=== PATIENT | female | born 1990 | race Caucasian/White ===

== ENCOUNTER 2016-06-09 10:15 | Emergency (ER) | payer OTHER ==
[2016-06-09 10:23] VITALS: BP 127/67; PULSE 77; TEMP 97.8; BMI 35.7
--- NOTE | 2016-06-09 11:22 | PDOC ---
History of Present Illness - General Chief Complaint: Pain Stated Complaint: CHEST PAIN Time Seen by Provider: 06/09/16 10:40 History Source: Patient Exam Limitations: No Limitations - History of Present Illness Initial Comments: 06/09/16 11:25 Chief complaint: left breast pain intermittent 4 days History of Present Illness: Patient is a 25-year-old female with a history of asthma here today complaining of intermittent left breast pain 4 days. Patient denies any redness of her breast or discharge from her nipples or any palpated lump. Patient denies any shortness of breath or any wheezing recently. Patient reports that the pain occurs randomly even when at rest. Patient denies any heavy lifting. 06/09/16 12:14 Timing/Duration: unsure Severity: moderate Associated Symptoms: reports: other (left breast pain intermittent ). denies: chest pain, cough, diaphoresis, fever/chills, headaches, loss of appetite, malaise, nausea/vomiting, shortness of breath, syncope, weakness Past History - Past Medical History Allergies/Adverse Reactions: Allergies Allergy/AdvReac Type Severity Reaction Status Date / Time No Known Allergies Allergy Verified 06/09/16 10:23 Home Medications: Ambulatory Orders NK [No Known Home Medication] 04/09/16 Other medical history: PANCEATIC ANEURYSM - Psycho/Social/Smoking Cessation Hx Suicidal Ideation: No Smoking History: Current every day smoker Have you smoked in the past 12 months: Yes Number of Cigarettes Smoked Daily: 8 Information on smoking cessation initiated: No 'Breaking Loose' booklet given: 04/09/16 Hx Alcohol Use: Yes (SOCIAL) Drug/Substance Use Hx: No Substance Use Type: None Review of Systems - Review of Systems Able to Perform ROS?: Yes Comments:: 06/09/16 11:35 Left pain breast intermittent for 4 days, denies redness, discharge from nipple , lump or one particular painful area, Constitutional: No: Symptoms Reported HEENTM: No: Symptoms Reported Respiratory: No: Symptoms reported Cardiac (ROS): No: Symptoms Reported ABD/GI: No: Symptoms Reported : No: Symptoms Reported Musculoskeletal: No: Symptoms Reported Integumentary: No: Symptoms Reported Neurological: No: Symptoms reported *Physical Exam - Vital Signs Last Vital Signs Temp Pulse Resp BP Pulse Ox 97.8 F 77 20 127/67 99 06/09/16 10:19 06/09/16 10:19 06/09/16 10:19 06/09/16 10:19 06/09/16 10:19 - Physical Exam General Appearance: Yes: Appropriately Dressed Neck: negative: Tender, Lymphadenopathy (R), Lymphadenopathy (L), Rigidity, Tender lateral, Tender midline Respiratory/Chest: positive: Lungs Clear, Normal Breath Sounds. negative: Chest Tender, Respiratory Distress Cardiovascular: positive: Regular Rhythm, Regular Rate, S1, S2 Comments:: 06/09/16 11:37 Breasts: No asymmetry of breasts noted no nipple inversion or discharge patient has piercings through both nipples, no peau d'orange of bilateral breasts no dimpling of skin noted, no masses palpated b/l Integumentary: positive: Normal Color Neurologic: positive: Alert, Normal Response Heart Score/ECG Review - ECG Impressions Comment:: 06/09/16 12:[address] Newton NSR, vent 75 bpm Medical Decision Making - Medical Decision Making 06/09/16 12:14 06/09/16 12:15 Patient is a 25-year-old female with a history of asthma here today complaining of intermittent left breast pain 4 days. Patient denies any redness of her breast or discharge from her nipples or any palpated lump. Patient denies any shortness of breath or any wheezing recently. Patient reports that the pain occurs randomly even when at rest. Patient denies any heavy lifting. Left breast pain PLAN: EKG NSR reviewed by Dr. Newton xray chest pa/lateral no infiltrate, dextroscolosis thoracic urine hcg negative breast US left r/o abnormality on it remarkable left breast ultrasound, correlate for pain further evaluation and management should be based on clinical grounds. 06/09/16 13:19 06/09/16 14:09 *DC/Admit/Observation/Transfer Diagnosis at time of Disposition: Breast pain, left - Discharge Dispostion Disposition: HOME Condition at time of disposition: Stable - Patient Instructions Additional Instructions: Follow-up with your primary care provider and [facility] doctor for further evaluation within the next few days Today your chest x-ray was within normal limits no signs of infection EKG was within normal limits Left breast ultrasound was unremarkable Take ibuprofen as needed as directed by engineer chief for pain Return to emergency room if any difficulty breathing or worsening pain or any new symptoms develop Patient voiced understanding of discharge instructions all questions were answered
--- NOTE | 2016-06-16 13:45 | EKG ---
Test Reason : Blood Pressure : / mmHG Vent. Rate : 075 BPM Atrial Rate : 075 BPM P-R Int : 160 ms QRS Dur : 072 ms QT Int : 370 ms P-R-T Axes : 065 031 053 degrees QTc Int : 413 ms NORMAL SINUS RHYTHM WITH SINUS ARRHYTHMIA NORMAL ECG NO PREVIOUS ECGS AVAILABLE Confirmed by JOHN LAL, TIFFANY ([id number]) on 06/16/2016 1:45:45 PM Referred By: Confirmed By:TIFFANY LOPEZ MD
== END 2016-06-09 14:16 | disposition home or self-care (01) ==
LOC: JERFT 10:15
DX: N64.4 Mastodynia (principal); J45.909 Unspecified asthma, uncomplicated; F17.210 Nicotine dependence, cigarettes, uncomplicated
CPT/HCPCS: 71020-TC; 76641-TC-LT; 84703; 93005; 93010; 99281-25

== ENCOUNTER 2016-09-13 21:06 | Inpatient (IN) | payer OTHER ==
--- NOTE | 2016-09-13 21:41 | PDOC ---
History of Present Illness - General History Source: Patient Exam Limitations: No Limitations - History of Present Illness Initial Comments: 09/13/16 21:57 The patient is a 25 year old female with significant past medical history of asthma who presents to the ED for 3 days of right upper and left upper quadrant pain radiating to the back. Patient reports the pain to the right upper quadrant is more prominent than the left. Patient reports associated decreased PO intake and nausea, but no vomiting or diarrhea. No exacerbating or alleviating factors. Denies any recent travels or sick contacts. Denies dysuria , hematuria, frequency, or urgency. The patient denies fever, chills, cough, SOB, chest pain, and palpitations. Allergies: NKDA Social History: Current smoker (half ppd) Past Surgical History: None reported PCP: None reported <Genoveva Lovelace - Last Filed: 09/14/16 03:54> - General History Source: Patient <Ryan Landeros - Last Filed: 09/14/16 19:40> - General Chief Complaint: Pain, Acute Stated Complaint: ABD PAIN Time Seen by Provider: 09/13/16 21:21 Past History <Genoveva Lovelace - Last Filed: 09/14/16 03:54> - Immunization History Immunization Up to Date: Yes - Psycho/Social/Smoking Cessation Hx Suicidal Ideation: No Smoking History: Current every day smoker Have you smoked in the past 12 months: Yes Number of Cigarettes Smoked Daily: 7 Information on smoking cessation initiated: No 'Breaking Loose' booklet given: 04/09/16 Hx Alcohol Use: No Drug/Substance Use Hx: No Substance Use Type: None <Ryan Landeros - Last Filed: 09/14/16 19:40> - Past Medical History Allergies/Adverse Reactions: Allergies Allergy/AdvReac Type Severity Reaction Status Date / Time No Known Allergies Allergy Verified 09/13/16 21:10 Home Medications: Ambulatory Orders Ibuprofen [Advil -] 600 mg PO QID 06/22/16 Review of Systems - Review of Systems Able to Perform ROS?: Yes Comments:: 09/13/16 21:57 CONSTITUTIONAL: +decreased PO intake Absent: fever, no chills, no fatigue EYES: Absent: visual changes ENT: Absent: ear pain, no sore throat CARDIOVASCULAR: Absent: chest pain, no palpitations RESPIRATORY: Absent: cough, no SOB GI: +RUQ and LUQ pain, nausea Absent: no vomiting, no constipation, no diarrhea GENITOURINARY: Absent: dysuria, no frequency, no hematuria MUSCULOSKELETAL: Absent: back pain, no arthralgia, no myalgia SKIN: Absent: rash NEURO: Absent: headache <Genoveva Lovelace - Last Filed: 09/14/16 03:54> *Physical Exam - Vital Signs Last Vital Signs Temp Pulse Resp BP Pulse Ox 98.2 F 91 H 18 135/91 97 09/13/16 21:10 09/13/16 21:10 09/13/16 21:10 09/13/16 21:10 09/13/16 21:10 - Physical Exam Comments: 09/13/16 21:57 GENERAL: Well-appearing, well-nourished. No apparent distress. HEENT: Normocephalic, atraumatic. PERRL, EOM intact. CARDIOVASCULAR: Normal S1, S2. Regular rate and rhythm. PULMONARY: Clear to auscultation bilaterally. ABDOMEN: Soft, non-distended, non-tender. EXTREMITIES: Normal ROM in all four extremities. No gross deformities. SKIN: Warm, dry. No rash NEUROLOGICAL: No focal neurological deficits. <Genoveva Lovelace - Last Filed: 09/14/16 03:54> - Vital Signs Last Vital Signs Temp Pulse Resp BP Pulse Ox 98.2 F 91 H 18 135/91 97 09/13/16 21:10 09/13/16 21:10 09/13/16 21:10 09/13/16 21:10 09/13/16 21:10 <Ryan Landeros - Last Filed: 09/14/16 19:40> ED Treatment Course - LABORATORY CBC & Chemistry Diagram: 09/13/16 22:30 09/13/16 22:30 - RADIOLOGY Radiograph Interpretation: 09/14/16 03:54 EXAM: CT abdomen and pelvis without contrast Reviewed by Imaging professor of religion: FINDINGS: Lung bases are clear. The visualized cardiac chambers are normal size and configuration. There is an 18 mm calcification in the region of the distal CBD. No CBD or intrahepatic duct dilation. Normal unenhanced liver, gallbladder , pancreas, spleen, adrenal glands and kidneys. The stomach and abdominal small and large bowel are normal. There is no aortic aneurysm. There is no significant retroperitoneal lymphadenopathy. The pelvic small and large bowel are normal. The appendix is normal. The uterus and adnexal structures are normal. Urinary bladder is unremarkable. There is no pelvic free fluid. No discrete pelvic lymphadenopathy is identified. IMPRESSION: No definite acute pathology. 18 mm calcifications in the region of the distal CBD of unclear significance, although there is no CBD dilation. <Genoveva Lovelace - Last Filed: 09/14/16 03:54> - LABORATORY CBC & Chemistry Diagram: 09/14/16 06:30 09/14/16 06:30 <Ryan Landeros - Last Filed: 09/14/16 19:40> Medical Decision Making - Medical Decision Making 09/14/16 06:38 Dr. Landeros: The scribe's documentation has been prepared under my direction and personally reviewed by me in its entirery. I confirm that the note above accurately reflects all work, treatment, procedures, and medical decision making performed by me. Patient found to have a 18 mm area of calcification at the gallbladder duct. Patient afebrile, LFTs normal, normal white count. however, patient having moderate pain. admitted to the hospitalist service. <Ryan Landeros - Last Filed: 09/14/16 19:40> *DC/Admit/Observation/Transfer - Attestations Scribe Attestion: 09/13/16 21:58 Documentation prepared by Genoveva Lovelace, acting as medical lab director for Ryan Landeros MD/DO. <Genoveva Lovelace - Last Filed: 09/14/16 03:54> - Discharge Dispostion Admit: Yes <Ryan Landeros - Last Filed: 09/14/16 19:40> Diagnosis at time of Disposition: Abdominal pain
[2016-09-13] MEDS ORDERED: PANTOPRAZOLE SODIUM 40 MG in SODIUM CHLORIDE 100 ML IVPB ONE (21:53)
[2016-09-13] MEDS ORDERED: ONDANSETRON 4 MG/2 ML VIAL IVPUSH STA (21:53)
[2016-09-13] MEDS ORDERED: PANTOPRAZOLE SODIUM 100 ML IVPB ONE (22:28)
[2016-09-13] MEDS ORDERED: ONDANSETRON 4 MG/2 ML VIAL ONE (22:28)
[2016-09-13 22:45] LABS: BASOPHIL 0.6 % (0-2.0); EOSINOPHIL 1.8 % (0-4.5); MCH 24.7 pg (25.7-33.7); MCHC 31.6 g/dl (32.0-36.0); MEAN PLT VOLUME 10.7 fl (7.5-11.1); NEUTROPHILS 49.2 % (42.8-82.8); PLATELET COUNT 82 K/MM3 (134-434); RDW 15.4 % (11.6-15.6); WHITE BLOOD COUNT 6.2 K/mm3 (4.0-10.0)
[2016-09-13 23:02] LABS: INR 1.02 (0.82-1.09); PROTHROMBIN TIME (PATIENT) 11.2 SEC (9.98-11.88)
[2016-09-13 23:23] LABS: ALBUMIN 3.2 g/dl (3.4-5.0); AMYLASE 48 U/L (25-115); ANION GAP 10 (8-16); CALCIUM 8.3 mg/dL (8.5-10.1); CO2 26 mmol/L (21-32); COCKROFT - GAULT 217.345; CREATININE 0.7 mg/dL (0.55-1.02); GLUCOSE,RANDOM 110 mg/dL (74-106); SGOT/AST 13 U/L (15-37); SGPT/ALT 21 U/L (12-78)
[2016-09-13 23:24] LABS: ALK PHOS 55 U/L (45-117); BILIRUBIN,TOTAL 0.3 mg/dL (0.2-1.0); TOT PROT 6.2 g/dl (6.4-8.2)
[2016-09-14] MEDS ORDERED: KETOROLAC TROMETHAMINE 30 MG/1 ML VIAL IVPUSH ONE (00:25)
[2016-09-14] MEDS ORDERED: KETOROLAC TROMETHAMINE 30 MG/1 ML VIAL ONE (00:25)
[2016-09-14] MEDS ORDERED: HYDROmorphone HCL CARPU-JECT 1 MG/1 ML DISP.SYRIN IVPUSH ONE (04:11)
[2016-09-14] MEDS ORDERED: HYDROmorphone HCL CARPU-JECT 1 MG/1 ML DISP.SYRIN IVPUSH PRN (04:11)
[2016-09-14] MEDS ORDERED: ONDANSETRON 4 MG/2 ML VIAL IVPB PRN (04:12)
[2016-09-14] MEDS ORDERED: HYDROmorphone HCL CARPU-JECT 1 MG/1 ML DISP.SYRIN ONE (04:24)
[2016-09-14] MEDS ORDERED: ONDANSETRON 4 MG/2 ML VIAL ONE (04:30)
[2016-09-14] MEDS ORDERED: ALBUTEROL SO4 0.083% IH SOL 2.5 MG/3 ML VIAL.NEB. NEB PRN (04:40)
[2016-09-14] MEDS: SODIUM CHLORIDE 1,000 ML IV SCH (04:48)
--- NOTE | 2016-09-14 04:48 | HP ---
CHIEF COMPLAINT: abd pain PCP: HISTORY OF PRESENT ILLNESS: This is a 25 year old female with a past medical history of asthma and "aneurysm " on head of pancreas who presented with abdominal pain, bilat upper quadrant pain which localizes to epigastric area. Pt reports nausea and one small episode vomiting yesterday. No further vomiting and no diarrhea. Pt reports pain 8/10 at present. She denies any chest pain or SOB. She reports that she did see a GI at [facility] a over a year ago and cannot remember his name. 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 PAST SURGICAL HISTORY: x 2 Social History: Smokin/2 ppd x 8 years Alcohol: occ socially, has 2-3 drinks Drugs: pt denies Family History: mother alive, asthma, HTN, borderline DM, seizure disorder father , murdered, no known medical problems brother 2 months of age, born with half a heart multiple siblings with asthma Allergies No Known Allergies Allergy (Verified 09/13/16 21:10) HOME MEDICATIONS: 3 Medication Instructions Recorded Ibuprofen [Advil -] 600 mg PO QID 06/22/16 REVIEW OF SYSTEMS CONSTITUTIONAL: Present: loss of appetite Absent: fever, chills, diaphoresis, generalized weakness, malaise, weight change HEENT: Absent: rhinorrhea, nasal congestion, throat pain, throat swelling, difficulty swallowing, mouth swelling, ear pain, eye pain, visual changes CARDIOVASCULAR: Absent: chest pain, syncope, palpitations, irregular heart rate, lightheadedness , peripheral edema RESPIRATORY: Absent: cough, shortness of breath, dyspnea with exertion, orthopnea, wheezing, stridor, hemoptysis GASTROINTESTINAL: Present: abdominal pain, nausea Absent: abdominal distension, vomiting, diarrhea, constipation, melena, hematochezia GENITOURINARY: Absent: dysuria, frequency, urgency, hesitancy, hematuria, flank pain, genital pain MUSCULOSKELETAL: Absent: myalgia, arthralgia, joint swelling, back pain, neck pain SKIN: Absent: rash, itching, pallor HEMATOLOGIC/IMMUNOLOGIC: Absent: easy bleeding, easy bruising, lymphadenopathy, frequent infections ENDOCRINE: Absent: unexplained weight gain, unexplained weight loss, heat intolerance, cold intolerance NEUROLOGIC: Absent: headache, focal weakness or paresthesias, dizziness, unsteady gait, seizure, mental status changes, bladder or bowel incontinence PSYCHIATRIC: Absent: anxiety, depression, suicidal or homicidal ideation, hallucinations. PHYSICAL EXAMINATION Vital Signs - 24 hr 3 09/13/16 21:10 Temperature 98.2 F Pulse Rate 91 H Respiratory 18 Rate Blood Pressure 135/91 O2 Sat by Pulse 97 Oximetry (%) GENERAL: Awake, alert, and fully oriented, in no acute distress. HEAD: Normal with no signs of trauma. EYES: Pupils equal, round and reactive to light, extraocular movements intact, sclera anicteric, conjunctiva clear. No lid lag. EARS, NOSE, THROAT: Ears normal, nares patent, oropharynx clear without exudates. Moist mucous membranes. NECK: Normal range of motion, supple without lymphadenopathy, JVD, or masses. LUNGS: Breath sounds equal, clear to auscultation bilaterally. No wheezes, and no crackles. No accessory muscle use. HEART: Regular rate and rhythm, normal S1 and S2 without murmur, rub or gallop. ABDOMEN: Soft, obese, not distended, normoactive bowel sounds, no guarding, no rebound, no masses. No hepatomegaly or splenomegaly. + tenderness epigastric region and RUQ on deep palpation MUSCULOSKELETAL: Normal range of motion at all joints. No bony deformities or tenderness. No CVA tenderness. UPPER EXTREMITIES: 2+ pulses, warm, well-perfused. No cyanosis. No clubbing. No peripheral edema. LOWER EXTREMITIES: 2+ pulses, warm, well-perfused. No calf tenderness. No peripheral edema. NEUROLOGICAL: Cranial nerves II-XII intact. Normal speech. Normal gait. PSYCHIATRIC: Cooperative. Good eye contact. Appropriate mood and affect. SKIN: Warm, dry, normal turgor, no rashes or lesions noted, normal capillary refill. Laboratory Results - last 24 hr 3 09/13/16 09/13/16 09/13/16 22:30 22:30 22:30 WBC 6.2 RBC 4.68 Hgb 11.6 Hct 36.5 MCV 78.0 L MCHC 31.6 L RDW 15.4 Plt Count 82 L MPV 10.7 Neutrophils % 49.2 Lymphocytes % 38.5 Monocytes % 9.9 Eosinophils % 1.8 Basophils % 0.6 INR 1.02 Sodium Potassium Chloride Carbon Dioxide Anion Gap BUN Creatinine Creat Clearance w eGFR Random Glucose Calcium Total Bilirubin AST ALT Alkaline Phosphatase Total Protein Albumin Total Amylase Lipase Serum , Qual Negative 3 09/13/16 22:30 WBC RBC Hgb Hct MCV MCHC RDW Plt Count MPV Neutrophils % Lymphocytes % Monocytes % Eosinophils % Basophils % INR Sodium 142 Potassium 3.6 Chloride 106 Carbon Dioxide 26 Anion Gap 10 BUN 13 Creatinine 0.7 Creat Clearance w eGFR > 60 Random Glucose 110 H Calcium 8.3 L Total Bilirubin 0.3 AST 13 L ALT 21 Alkaline Phosphatase 55 Total Protein 6.2 L Albumin 3.2 L Total Amylase 48 Lipase 85 Serum , Qual CT abdomen/pelvis: Addendum: Apparently the patient does have a 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 Recommend comparison with prior examination in order to demonstrate stability were obtain a CTA or MRA as clinically warranted. This is likely an incidental finding. THIS DOCUMENT HAS BEEN ELECTRONICALLY SIGNED Balta Gutierrez MD 09/14/2016 04:22 ALHAJI Sherman Please call Imaging Industrial Renderer [phone] ([phone]) with questions. PREVIOUS REPORT: Referring Physician: Ryan Landeros Patient Name: Sariah Harper THIS IS A PRELIMINARYREPORT FROM IMAGING [facility] EXAM: CT abdomen and pelvis without contrast IMAGES: [id number] INDICATION: Pain. Rule out diverticulitis. DATE OF SERVICE: 2016-09-14 02:31:33.0 COMPARISON: none FINDINGS: Lung bases are clear. The visualized cardiac chambers are normal size and configuration. There is an 18 mm calcification in the region of the distal CBD. No CBD or intrahepatic duct dilation. Normal unenhanced liver, gallbladder , pancreas, spleen, adrenal glands and kidneys. The stomach and abdominal small and large bowel are normal. There is no aortic aneurysm. There is no significant retroperitoneal lymphadenopathy. The pelvic small and large bowel are normal. The appendix is normal. The uterus and adnexal structures are normal. Urinary bladder is unremarkable. There is no pelvic free fluid. No discrete pelvic lymphadenopathy is identified. IMPRESSION: No definite acute pathology. 18 mm calcifications in the region of the distal CBD of unclear significance, although there is no CBD dilation. THIS DOCUMENT HAS BEEN ELECTRONICALLY SIGNED Balta Gutierrez MD 09/14/2016 03:07 EST ASSESSMENT/PLAN: 25yF with PMH asthma and "aneurysm at pancreatic head" presented to the ED with abdominal pain. She is being admitted for further workup. Abdominal pain with calcification in region of distal CBD - ? r/t previous pancreatic aneurysm vs choledocholithiasis - choledocholithiasis unlikely as pt without CBD dilation or elevated WBC, LFTs, lipase or amylase - d/w home sales consultant radiologist Dr Gutierrez, states aneurysm could be source of finding but no sign of acute rupture - will order MRA abdomen - consider GI consult - trend WBC and LFTs - keep NPO - pantoprazole 40mg IVPB daily asthma - asymptomatic; monitor for acute exac and treat DVT PPX - chemoprophylaxis deferred at present, pt fully ambulatory FEN - NS @ 100cc/hr - repeat labs in am - NPO for now Dispo: pt currently requires inpatient observation of her emergent condition. Visit type - Emergency Visit Emergency Visit: Yes ED Registration Date: 09/13/16 Care time: The patient presented to the Emergency Department on the above date and was hospitalized for further evaluation of their emergent condition. - New Patient This patient is new to me today: Yes Date on this admission: 09/14/16 - Critical Care Critical Care patient: No
[2016-09-14] MEDS: DOCUSATE SODIUM 100 MG CAPSULE (FP) PO SCH ×3 (07:40→21:27)
[2016-09-14 07:53] LABS: BASOPHIL 0.5 % (0-2.0); EOSINOPHIL 2.1 % (0-4.5); MCH 25.4 pg (25.7-33.7); MCHC 32.3 g/dl (32.0-36.0); MEAN CELL VOLUME 78.7 fl (80-96); MEAN PLT VOLUME 10.7 fl (7.5-11.1); NEUTROPHILS 47.2 % (42.8-82.8); PLATELET COUNT 77 K/MM3 (134-434); RDW 15.3 % (11.6-15.6); WHITE BLOOD COUNT 5.6 K/mm3 (4.0-10.0)
[2016-09-14 08:06] VITALS: BMI 40.5
[2016-09-14 08:16] LABS: ALBUMIN 3.1 g/dl (3.4-5.0); ALK PHOS 50 U/L (45-117); ANION GAP 12 (8-16); BILIRUBIN,TOTAL 0.5 mg/dL (0.2-1.0); CALCIUM 8.2 mg/dL (8.5-10.1); CO2 27 mmol/L (21-32); CREATININE 0.6 mg/dL (0.55-1.02); GLUCOSE,RANDOM 80 mg/dL (74-106); MAGNESIUM 1.9 mg/dL (1.8-2.4); PHOSPHOROUS 3.8 mg/dL (2.5-4.9); SGOT/AST 15 U/L (15-37); SGPT/ALT 19 U/L (12-78); TOT PROT 5.9 g/dl (6.4-8.2)
[2016-09-14] MEDS: HYDROmorphone HCL CARPU-JECT 1 MG/1 ML DISP.SYRIN IVPB PRN ×4 (08:19→22:37)
[2016-09-14] MEDS ORDERED: METOCLOPRAMIDE HCL INJECTION 10 MG/2 ML VIAL IVPB ONE (11:15)
[2016-09-14] MEDS ORDERED: PNEUMOC 13-VAL CONJ-DIP CRM/PF 0.5 ML DISP.SYRIN IM ONE (12:11)
--- NOTE | 2016-09-14 12:26 | PN ---
Physical Exam: SUBJECTIVE: Patient seen and examined. She is still having 8/10 pain on the RUQ that radiates to her right back, LUQ pain/discomfort and epigastric pain. Denies vomiting but is having nausea not relieved with Zofran. She states she had this abdominal discomfort one year ago but it now much worse. OBJECTIVE: On exam, appears comfortable, no acute distress RUQ tenderness on light palpation, +epigastric pain Will Give Reglan x 1 for nausea Awaiting MRI of abdomen Will need MRI from 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 HEAD: Normal with no signs of trauma. EYES: PERRL, extraocular movements intact, sclera anicteric, conjunctiva clear. No ptosis. ENT: Ears normal, nares patent, oropharynx clear without exudates, moist mucous membranes. NECK: Trachea midline, full range of motion, supple. LUNGS: Breath sounds equal, clear to auscultation bilaterally, no wheezes, no crackles, no accessory muscle use. HEART: Regular rate and rhythm ABDOMEN: Soft, nontender, nondistended, normoactive bowel sounds, no guarding, + RUQ tenderness EXTREMITIES: no edema, states her right ankle is sore, no edema, no bruising noted on exam. Able to ambulate without difficulty. NEUROLOGICAL: Normal speech PSYCH: Normal mood, normal affect. SKIN: Warm, dry, normal turgor, no rashes or lesions noted Laboratory Results - last 24 hr 09/14/16 09/14/16 06:30 06:30 WBC 5.6 RBC 4.71 Hgb 11.9 Hct 37.0 MCV 78.7 L MCHC 32.3 RDW 15.3 Plt Count 77 L MPV 10.7 Neutrophils % 47.2 Lymphocytes % 40.9 H Monocytes % 9.3 Eosinophils % 2.1 Basophils % 0.5 Sodium 143 Potassium 4.4 D Chloride 104 Carbon Dioxide 27 Anion Gap 12 BUN 11 Creatinine 0.6 Creat Clearance w eGFR > 60 Random Glucose 80 D Calcium 8.2 L Phosphorus 3.8 Magnesium 1.9 Total Bilirubin 0.5 D AST 15 ALT 19 Alkaline Phosphatase 50 Total Protein 5.9 L Albumin 3.1 L Active Medications Generic Name Dose Route Start Last Admin Trade Name Radha PRN Reason Stop Dose Admin Albuterol Sulfate 1 amp 09/14/16 04:40 Ventolin 0.083% Nebulizer Soln - NEB Q4H PRN SHORT OF BREATH/WHEEZING Docusate Sodium 100 mg 09/14/16 06:00 09/14/16 07:40 Colace - PO 100 mg TID AB Administration Hydromorphone HCl 0.5 mg 09/14/16 07:03 09/14/16 08:19 Dilaudid Injection - IVPB 0.5 mg Q4H PRN Administration PAIN Sodium Chloride 1,000 mls @ 100 mls/hr 09/14/16 04:45 09/14/16 04:48 Normal Saline - IV 100 mls/hr ASDIR AB Administration Pantoprazole Sodium 100 mls @ 200 mls/hr 09/14/16 10:00 Protonix 40mg Ivpb (Pre-Docked) IVPB DAILY AB Ondansetron HCl 4 mg 09/14/16 04:12 09/14/16 04:33 Zofran Injection IVPB 4 mg Q4H PRN Administration NAUSEA AND/OR VOMITING Pneumococcal 13-Valent Conj Vacc 0.5 ml 09/14/16 12:11 Prevnar 13 Syringe - IM 09/14/16 12:12 .ONCE ONE ASSESSMENT/PLAN: Patient is a 25 year old female with significant past medical history of asthma who presents to the ED on 09/14/2016 for abdominal pain. She states her abdominal pain is localized on the RUQ and LUQ that radiates to her back. She states the pain on RUQ is worse than she had in the past. States pain is associated with decreased PO intake and nausea. Denies vomiting or diarrhea on exam. She states that she was told that she has an aneurysm on head of pancreas which was seen at an MRI she had at [facility] about one year ago. 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 Recommend comparison with prior examination in order to demonstrate stability were obtain a CTA or MRA as clinically warranted" FINDINGS: There is an 18 mm calcification in the region of the distal CBD. No CBD or intrahepatic duct dilation. Normal unenhanced liver, gallbladder, pancreas, spleen, adrenal glands and kidneys. The stomach and abdominal small and large bowel are normal. There is no aortic aneurysm. There is no significant retroperitoneal lymphadenopathy. The pelvic small and large bowel are normal. The appendix is normal. The uterus and adnexal structures are normal. Urinary bladder is unremarkable. There is no pelvic free fluid. No discrete pelvic lymphadenopathy is identified. IMPRESSION: No definite acute pathology. 18 mm calcifications in the region of the distal CBD of unclear significance, although there is no CBD dilation. GI: Abdominal Pain - acute as per CT scan: 18mm calcification in distal CBD Assessment/Plan: If there is a previous pancreatic aneurysm, would like to obtain previous MRI done at [facility] and compare As per previous notes, aneurysm could be source of finding (pain?) but no signs of acute rupture MRI/MRCP of abdomen pending On Protonix, Reglan, Zofran as needed amylase and lipase are normal ast/alt normal F.E.N. Fluids: NS @100cc/hr Electrolytes: monitor within normal limits Nutrition: NPO for now Prophylaxis: DVT: ambulatory young patient, defer for now GI: zofran, protonix Disposition. Full code. Patient currently requires inpatient observation. Visit type - Emergency Visit Emergency Visit: Yes ED Registration Date: 09/14/16 Care time: The patient presented to the Emergency Department on the above date and was hospitalized for further evaluation of their emergent condition. - New Patient This patient is new to me today: Yes Date on this admission: 09/14/16 - Critical Care Critical Care patient: No - Discharge Referral Referred to [facility] Med P.C.: No
[2016-09-14] MEDS: PANTOPRAZOLE SODIUM 100 ML IVPB SCH (12:42)
[2016-09-14] MEDS ORDERED: PNEUMOCOCCAL 23 VACCINE 0.5 ML VIAL IM ONE (14:45)
[2016-09-15] MEDS: SODIUM CHLORIDE 1,000 ML IV SCH (05:15)
[2016-09-15] MEDS: DOCUSATE SODIUM 100 MG CAPSULE (FP) PO SCH ×3 (06:16→21:43)
[2016-09-15 07:36] LABS: BASOPHIL 0.6 % (0-2.0); EOSINOPHIL 2.4 % (0-4.5); MCH 25.2 pg (25.7-33.7); MCHC 32.1 g/dl (32.0-36.0); MEAN CELL VOLUME 78.4 fl (80-96); MEAN PLT VOLUME 11.2 fl (7.5-11.1); NEUTROPHILS 42.2 % (42.8-82.8); PLATELET COUNT 75 K/MM3 (134-434); RDW 15.2 % (11.6-15.6); WHITE BLOOD COUNT 4.7 K/mm3 (4.0-10.0)
[2016-09-15 08:29] LABS: ALBUMIN 2.9 g/dl (3.4-5.0); ALK PHOS 50 U/L (45-117); ANION GAP 9 (8-16); BILIRUBIN,TOTAL 0.3 mg/dL (0.2-1.0); CO2 25 mmol/L (21-32); COCKROFT - GAULT 236.3765; CREATININE 0.7 mg/dL (0.55-1.02); GLUCOSE,RANDOM 81 mg/dL (74-106); SGOT/AST 13 U/L (15-37); SGPT/ALT 19 U/L (12-78); TOT PROT 5.7 g/dl (6.4-8.2)
[2016-09-15] MEDS: HYDROmorphone HCL CARPU-JECT 1 MG/1 ML DISP.SYRIN IVPB PRN (09:05)
[2016-09-15] MEDS: PANTOPRAZOLE SODIUM 100 ML IVPB SCH (10:10)
--- NOTE | 2016-09-15 16:44 | PN ---
Physical Exam: SUBJECTIVE: Patient seen and examined. She c/p abd pain, improved with medication, she is tolerating diet and denies nausea, vomiting, fever, chill, pain no longer radiating to back OBJECTIVE: Vital Signs Period Temp Pulse Resp BP Sys/Ramos Pulse Ox Last 24 Hr 98.2 F-99 F 56-71 16-20 117-148/60-76 98-98 PE Neuro: alert, awake, cn 2-12intact Pulm: dull, but clear CV: s1 s2 rrr no mrg Abd: diffuse epigastric tenderness no masses, no distention, + bs Ext: warm, no le edema Laboratory Results - last 24 hr 09/15/16 09/15/16 06:15 06:15 WBC 4.7 RBC 4.61 Hgb 11.6 Hct 36.1 MCV 78.4 L MCHC 32.1 RDW 15.2 Plt Count 75 L MPV 11.2 H Neutrophils % 42.2 L Lymphocytes % 43.9 H Monocytes % 10.9 H Eosinophils % 2.4 Basophils % 0.6 Sodium 141 Potassium 4.5 Chloride 107 Carbon Dioxide 25 Anion Gap 9 BUN 12 Creatinine 0.7 Creat Clearance w eGFR > 60 Random Glucose 81 Calcium 8.0 L Total Bilirubin 0.3 D AST 13 L ALT 19 Alkaline Phosphatase 50 Total Protein 5.7 L Albumin 2.9 L Active Medications Generic Name Dose Route Start Last Admin Trade Name Freq PRN Reason Stop Dose Admin Albuterol Sulfate 1 amp 09/14/16 04:40 Ventolin 0.083% Nebulizer Soln - NEB Q4H PRN SHORT OF BREATH/WHEEZING Docusate Sodium 100 mg 09/14/16 06:00 09/15/16 15:24 Colace - PO Not Given TID AB Hydromorphone HCl 0.5 mg 09/14/16 07:03 09/15/16 09:05 Dilaudid Injection - IVPB 0.5 mg Q4H PRN Administration PAIN Sodium Chloride 1,000 mls @ 100 mls/hr 09/14/16 04:45 09/15/16 05:15 Normal Saline - IV 100 mls/hr ASDIR AB Administration Pantoprazole Sodium 100 mls @ 200 mls/hr 09/14/16 10:00 09/15/16 10:10 Protonix 40mg Ivpb (Pre-Docked) IVPB 200 mls/hr DAILY AB Administration Ondansetron HCl 4 mg 09/14/16 04:12 09/14/16 04:33 Zofran Injection IVPB 4 mg Q4H PRN Administration NAUSEA AND/OR VOMITING Assessment: 25 year old female with PMH asthma and "aneurysm at pancreatic head " admitted with abdominal pain, placed under observation for further work up. 1. Abdominal pain with calcification in region of distal CBD - MRCP reports shows exophytic pancreatic head with no lesion with no specific calcified lesions - CTA with contrast artery, veins phase; possible from previous pancreatitis - Pantoprazole 40mg IVPB daily - Tolerating regular diet - Discussed above with Dr. Humphrey, possible coiling, pending results - NPO after midnight 2. Asthma - Asymptomatic; monitor for acute exac and treat 3. DVT PPX - Lovenox sq Visit type - Emergency Visit Emergency Visit: Yes ED Registration Date: 09/14/16 Care time: The patient presented to the Emergency Department on the above date and was hospitalized for further evaluation of their emergent condition. - New Patient This patient is new to me today: Yes Date on this admission: 09/15/16 - Critical Care Critical Care patient: No
[2016-09-15] MEDS ORDERED: oxyCODONE HCL 5 MG TABLET PO PRN (17:03)
[2016-09-15] MEDS ORDERED: SODIUM CHLORIDE 1,000 ML IV SCH (21:10)
[2016-09-16] MEDS: DOCUSATE SODIUM 100 MG CAPSULE (FP) PO SCH ×2 (06:38→13:16)
[2016-09-16] MEDS ORDERED: ENOXAPARIN NA (PORCINE) 40 MG/0.4 ML DISP.SYRIN SQ SCH (10:00)
--- NOTE | 2016-09-16 16:30 | PN ---
Physical Exam: SUBJECTIVE: Patient seen and examined. She has abdominal pain, she is tolerating it. Discussed CTA results and plan moving forward. OBJECTIVE: Vital Signs Period Temp Pulse Resp BP Sys/Ramos Pulse Ox Last 24 Hr 98.5 F 82 -17 119/103 98 PE Neuro: alert, awake, cn 2-12intact Pulm: CTAB, however distant CV: s1 s2 rrr no mrg Abd: epigastric tenderness, soft, + bs Ext: warm, no le edema Active Medications Generic Name Dose Route Start Last Admin Trade Name Freq PRN Reason Stop Dose Admin Albuterol Sulfate 1 amp 09/14/16 04:40 Ventolin 0.083% Nebulizer Soln - NEB Q4H PRN SHORT OF BREATH/WHEEZING Docusate Sodium 100 mg 09/14/16 06:00 09/16/16 13:16 Colace - PO Not Given TID AB Enoxaparin Sodium 40 mg 09/16/16 10:00 09/16/16 10:07 Lovenox - SQ 40 mg DAILY AB Administration Hydromorphone HCl 0.5 mg 09/14/16 07:03 09/15/16 09:05 Dilaudid Injection - IVPB 0.5 mg Q4H PRN Administration PAIN Ondansetron HCl 4 mg 09/14/16 04:12 09/14/16 04:33 Zofran Injection IVPB 4 mg Q4H PRN Administration NAUSEA AND/OR VOMITING Oxycodone HCl 5 mg 09/15/16 17:03 09/15/16 17:18 Roxicodone - PO 5 mg Q4H PRN Administration PAIN Imaging: - MRCP reports shows exophytic pancreatic head with no lesion with no specific calcified lesions - CTAP with contrast artery, veins phase; possible from previous pancreatitis Assessment: 25 year old female with PMH asthma and "aneurysm at pancreatic head " admitted with intractable abdominal pain 1. Abdominal pain with calcification in region of distal CBD - CTA negative for aneurysm, however will need to r/o neoplasm - Will need EGD with EUS biopsy - Ca 19-9 ordered - D/w IR and GI, GI consulted will see 2. Asthma - No in exacerbation 3. DVT PPX - Lovenox sq Visit type - Emergency Visit Emergency Visit: Yes ED Registration Date: 09/16/16 Care time: The patient presented to the Emergency Department on the above date and was hospitalized for further evaluation of their emergent condition. - New Patient This patient is new to me today: No - Critical Care Critical Care patient: No
[2016-09-16 18:08] VITALS: BP 123/81; PULSE 85; TEMP 98.2
--- NOTE | 2016-09-16 20:13 | CON.GI ---
Consult Consult Specialty:: GASTROENTEROLOGY Reason for Consultation:: PANCREATIC HEAD LESION - History of Present Illness Chief Complaint: EPIGASTRIC UPPER ABDOMINAL PAIN History of Present Illness: 25 YEAR OLD FEMALE WITH HISTORY OF UPPER ABDOMINAL PAIN EVALUATED AT [facility] WITH UPPER ENDOSCOPY. AN H PYLORI INFECTION WAS DISCOVERED. SHE WAS TREATED BUT A CT SCAN REVEALED AN ANEURYSM IN THE PANCREATIC HEAD. AN EUS STUDY WAS RECOMMENDED BUT SHE NEVER HAD IT DONE THE UPPER ABDOMINAL PAIN HAS BEEN MINIMAL TO ABSENT AFTER THAT UNTIL THIS PAST TUESDAY WHEN AT WORK SHE HAD PAIN ACROSS THE UPPER ABDOMEN THAT DOUBLE HER OVER AND SHE LEFT WOR K AND CAME TO THE ER. THE PAIN IS A DULL GNAWING ACHE THAT CAN RADIATE TO THE MID BACK. NOTHING MAKES IT BETTER EXCEPT CURLING UP IN A BALL SHE WAITS FOR IT TO RESOLVE. STUDIES DONE HER INITIALLY SUGGESTED THE PRIOR ANEURYSM BUT A CTA OF THE ABDOMEN SUGGEST THAT THIS COULD ALSO BE A NEOPLASM. 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: Alzheimer's, CVA, Dementia, Migraine, Multiple Sclerosis, Peripheral Neuropathy, Parkinson's, Seizure, Syncope, TIA, Vertigo, Other Cardio/Vascular: No: AFIB, Aneurysm, Aortic Insufficiency, Aortic Stenosis, CAD , CHF, Deep Vein Thrombosis, HTN, Hyperlipdemia, [place], Mitral Insufficiency, Mitral Stenosis, Murmur, Pulmonary Hypertension, Other Pulmonary: Yes: Asthma Gastrointestinal: Yes: GERD, Other ( HPI) Hepatobiliary: Yes: Other ( HPI) Renal/: No: Renal Failure, Renal Inusuff, BPH, Cancer, Hematuria, Hemodialysis , Neurogenic Bladder, Renal Calculi, UTI, Other Reproductive: Yes: Other (TWO C SECTIONS) Heme/Onc: No: Anemia, B12 Deficiency, Bleeding Disorder, Cancer, Current Chemotherapy, Current Radiation Therapy, Hemochromatosis, Hypercoaguable State, Myeloproliferative Synd, Sickle Cell Disease, Sickle Cell Trait, Thrombocytopenia, Other Psych: No: Addictions, Anxiety, Bipolar, Depression, Panic, Psychosis, Schizophrenia, Other Musculoskeletal: No: Bursitis, Chronic low back pain, Hemiparesis, Hemiplegia, Osteoarthritis, Paraplegia, Other Rheumatology: No: Fibromyalgia, Gout, Lupus, Rheumatoid Arthritis, Sarcoidosis, Vasculitis, Other ENT: No: Allergic Rhinitis, Sinusitis, Other Endocrine: No: Charles's Disease, Torsten's Disease, Diabetes Insipidus, Diabetes Mellitus, Hyperparathyroidism, Hyperthyroidism, Hypothyroidism, Osteopenia, SIADH, Other Dermatology: No: Basal Cell, Cellulitis, Eczema, Melanoma, Psoriasis, Squamous Cell, Other - Past Surgical History Past Surgical History: Yes: , Upper Endoscopy - Alcohol/Substance Use Hx Alcohol Use: No - Smoking History Smoking history: Current every day smoker Have you smoked in the past 12 months: Yes Aproximately how many cigarettes per day: 7 Home Medications - Allergies Allergies/Adverse Reactions: Allergies Allergy/AdvReac Type Severity Reaction Status Date / Time No Known Allergies Allergy Verified 09/13/16 21:10 Family Disease History - Family Disease History Family History: Unremarkable Review of Systems - Review of Systems Constitutional: reports: No Symptoms, Other (NO WEIGHT LOSS) Eyes: reports: No Symptoms HENT: reports: No Symptoms Neck: reports: No Symptoms Cardiovascular: reports: No Symptoms Respiratory: reports: No Symptoms Gastrointestinal: reports: Abdominal Pain, Nausea, Other (GERD SYMPTOMS AT TIMES ) Genitourinary: reports: No Symptoms Breasts: reports: No Symptoms Reported Musculoskeletal: reports: No Symptoms Integumentary: reports: No Symptoms Neurological: reports: No Symptoms Endocrine: reports: No Symptoms Hematology/Lymphatic: reports: No Symptoms Psychiatric: reports: No Symptoms Physical Exam-GI Vital Signs: Vital Signs Temperature 98.2 F 09/16/16 18:06 Pulse Rate 85 09/16/16 18:06 Respiratory Rate 18 09/16/16 18:06 Blood Pressure 123/81 09/16/16 18:06 O2 Sat by Pulse Oximetry (%) 98 09/16/16 12:00 Constitutional: Yes: Well Nourished, Obese Eyes: Yes: Conjunctiva Clear HENT: Yes: Normocephalic Neck: Yes: Supple Cardiovascular: Yes: Regular Rate and Rhythm Respiratory: Yes: Regular Gastrointestinal Inspection: Yes: WNL ...Auscultate: Yes: Normoactive Bowel Sounds ...Palpate: Yes: Soft Musculoskeletal: Yes: WNL Extremities: Yes: WNL Neurological: Yes: WNL Psychiatric: Yes: Alert, Oriented Labs: INR, PTT INR 1.02 (0.82-1.09) 09/13/16 22:30 Laboratory Tests 09/13/16 09/13/16 09/15/16 22:30 22:30 06:15 WBC 4.7 RBC 4.61 Hgb 11.6 Hct 36.1 MCV 78.4 L Plt Count 75 L MPV 11.2 H Neutrophils % 42.2 L Lymphocytes % 43.9 H Monocytes % 10.9 H Eosinophils % 2.4 Basophils % 0.6 INR 1.02 Sodium Potassium Chloride Carbon Dioxide Anion Gap BUN Creatinine Creat Clearance w eGFR Random Glucose Calcium Total Bilirubin AST ALT Alkaline Phosphatase Total Protein Albumin Total Amylase 48 Lipase 85 09/15/16 06:15 WBC RBC Hgb Hct MCV Plt Count MPV Neutrophils % Lymphocytes % Monocytes % Eosinophils % Basophils % INR Sodium 141 Potassium 4.5 Chloride 107 Carbon Dioxide 25 Anion Gap 9 BUN 12 Creatinine 0.7 Creat Clearance w eGFR > 60 Random Glucose 81 Calcium 8.0 L Total Bilirubin 0.3 D AST 13 L ALT 19 Alkaline Phosphatase 50 Total Protein 5.7 L Albumin 2.9 L Total Amylase Lipase Imaging - Results Cat Scan: Image Reviewed Problem List - Problems (1) Lesion of pancreas Assessment/Plan: PATIENT IS CURRENTLY PAIN FREE. SHE CAN BE DISCHARGED AND I HAVE GIVEN HER MY GROUPS PHONE NUMBER TO CALL FOR REFERRAL AND SCHEDULING AND ENDOSCOPIC ULTRASOUND. CONTINUE H2 ADARSH OR PPi. CA19-9 SENT BY PRIMARY TEAM. NEUROENDOCRINE MASS ALSO A POSSIBLITY . AWAIT RESULT OF EUS AND ALSO COULD GET OCTREOTIDE SCAN AN OUTPATIENT IN ADDITION TO CHROMOGRANIN LEVELS. Code(s): K86.9 - DISEASE OF PANCREAS, UNSPECIFIED (2) Abdominal pain Code(s): R10.9 - UNSPECIFIED ABDOMINAL PAIN
--- NOTE | 2016-09-16 21:12 | DS ---
Physical Exam: SUBJECTIVE: Patient seen and examined. Nurse reports pt seen by Dr. Yañez who cleared pt for DC with outpatient f/u for EUS. Pt eager to go home despite late hour. Pt states she is feeling much better. Tolerating regular po diet. No complaints on exam. OBJECTIVE: Vital Signs 3 Period Temp Pulse Resp BP Sys/Ramos Pulse Ox Last 24 Hr 98.2 F-98.5 F 82-85 16-18 119-123/81-103 98 PHYSICAL EXAM GENERAL: The patient is awake, alert, and fully oriented, in no acute distress. HEAD: Normal with no signs of trauma. EYES: PERRL, extraocular movements intact, sclera anicteric, conjunctiva clear. ENT: Ears normal, nares patent, oropharynx clear without exudates, moist mucous membranes. NECK: Trachea midline, full range of motion, supple. LUNGS: Breath sounds equal, clear to auscultation bilaterally, no wheezes, no crackles, no accessory muscle use. HEART: Regular rate and rhythm, S1, S2 without murmur, rub or gallop. ABDOMEN: Soft, nontender, nondistended, normoactive bowel sounds, no guarding, no rebound, no hepatosplenomegaly, no masses. EXTREMITIES: 2+ pulses, warm, well-perfused, no edema. NEUROLOGICAL: Cranial nerves II through XII grossly intact. Normal speech, gait not observed. PSYCH: Normal mood, normal affect. SKIN: Warm, dry, normal turgor, no rashes or lesions noted. Laboratory Tests 3 09/13/16 09/13/16 09/13/16 22:30 22:30 22:30 WBC 6.2 RBC 4.68 Hgb 11.6 Hct 36.5 MCV 78.0 L MCHC 31.6 L RDW 15.4 Plt Count 82 L MPV 10.7 Neutrophils % 49.2 Lymphocytes % 38.5 Monocytes % 9.9 Eosinophils % 1.8 Basophils % 0.6 INR 1.02 Sodium Potassium Chloride Carbon Dioxide Anion Gap BUN Creatinine Creat Clearance w eGFR Random Glucose Calcium Phosphorus Magnesium Total Bilirubin AST ALT Alkaline Phosphatase Total Protein Albumin Total Amylase Lipase Serum , Qual Negative 3 09/13/16 09/14/16 09/14/16 22:30 06:30 06:30 WBC 5.6 RBC 4.71 Hgb 11.9 Hct 37.0 MCV 78.7 L MCHC 32.3 RDW 15.3 Plt Count 77 L MPV 10.7 Neutrophils % 47.2 Lymphocytes % 40.9 H Monocytes % 9.3 Eosinophils % 2.1 Basophils % 0.5 INR Sodium 142 143 Potassium 3.6 4.4 D Chloride 106 104 Carbon Dioxide 26 27 Anion Gap 10 12 BUN 13 11 Creatinine 0.7 0.6 Creat Clearance w eGFR > 60 > 60 Random Glucose 110 H 80 D Calcium 8.3 L 8.2 L Phosphorus 3.8 Magnesium 1.9 Total Bilirubin 0.3 0.5 D AST 13 L 15 ALT 21 19 Alkaline Phosphatase 55 50 Total Protein 6.2 L 5.9 L Albumin 3.2 L 3.1 L Total Amylase 48 Lipase 85 Serum , Qual 3 09/15/16 09/15/16 06:15 06:15 WBC 4.7 RBC 4.61 Hgb 11.6 Hct 36.1 MCV 78.4 L MCHC 32.1 RDW 15.2 Plt Count 75 L MPV 11.2 H Neutrophils % 42.2 L Lymphocytes % 43.9 H Monocytes % 10.9 H Eosinophils % 2.4 Basophils % 0.6 INR Sodium 141 Potassium 4.5 Chloride 107 Carbon Dioxide 25 Anion Gap 9 BUN 12 Creatinine 0.7 Creat Clearance w eGFR > 60 Random Glucose 81 Calcium 8.0 L Phosphorus Magnesium Total Bilirubin 0.3 D AST 13 L ALT 19 Alkaline Phosphatase 50 Total Protein 5.7 L Albumin 2.9 L Total Amylase Lipase Serum , Qual Imagin09/13/16 23:01: ABDOMEN US -LIMITED Right upper quadrant pain. Rule out gallstones Right upper abdomen ultrasound. The liver is within normal limits in size and echotexture. Gallbladder is adequately distended without intraluminal stones or thickening of its wall. No intra or extrahepatic bile duct dilatation is seen. The right kidney measures 11 cm sagittal length and appears unremarkable. Visualized portion of the pancreas appears unremarkable Visualized portion of the proximal abdominal aorta and inferior vena cava appear unremarkable. Normal flow in the main portal vein IMPRESSION: Unremarkable examination . No gallstones are identified. 09/14/16 02:31: CT/ABDOMEN PELVIS CT W/O CONTR HISTORY PROVIDED: Abdominal pain TECHNIQUE: Sequential axial images were obtained from the domes of the diaphragm through the symphysis pubis following the administration of oral contrast material. The lung bases are clear. The liver, spleen, pancreas, adrenal glands and kidneys demonstrate no significant abnormalities. The gallbladder is clear. There is a 1.9 cm calcification with lucent center in the right upper quadrant near the head of the pancreas and common bile duct. The etiology of this calcification is uncertain. It appears to be separate from the pancreas and not within the CBD. Diagnostic considerations would include a calcified aneurysm or possibly a calcified lymph node. No prior studies are available for comparison. If obtainable, a comparison may be helpful. There is no evidence of intra-abdominal or retroperitoneal lymphadenopathy or fluid collections. There is no evidence of pneumoperitoneum, bowel obstruction or intra-abdominal abscess. There is no CT evidence of acute appendicitis or diverticulitis. Examination of the pelvis demonstrates no evidence of pelvic masses, fluid collections or lymphadenopathy. The uterus is prominent. There is no evidence of acute bony abnormalities. IMPRESSION: 1. No evidence of diverticulitis or acute pathology within the abdomen or pelvis. 2. Right upper quadrant calcification of uncertain etiology. Clinical correlation and follow-up recommended. Please see above discussion. 09/14/16 16:31: MRI/ABDOMEN MRI WITH CONTRAST/MRCP MRI OF THE ABDOMEN WITHOUT AND WITH IV GADOLINIUM WITH MRCP HISTORY: 25-year-old female with pancreatic head hyperdensity which could represent pancreatic calcification versus stone versus pseudoaneurysm on the postcontrast study presenting for further evaluation TECHNIQUE: Multiplanar multisequential MRI of the abdomen before and after the intravenous administration of contrast were performed on a high field 1.5 [place] GE magnet. Prior to that MRA of the abdominal aorta was performed as well. Axial and coronal T2 fat-sat, axial T1 (in and out of phase), axial T2 FIESTA, axial T1 fat sat - LAVA prior to contrast and postcontrast administration ( 45 seconds, 80 seconds, 3 minutes, 5 minutes and 10 minutes delay) in addition to coronal postcontrast LAVA and axial diffusion weighted images were performed. Axial and coronal thin and thick slab 3 D MRCP was performed. 20 cc of Omniscan was administered intravenously No comparison MRI is available. Correlation is made with CT of the abdomen and pelvis dated September 14, 2016. FINDINGS: The visualized lung bases inferior mediastinum are unremarkable. The liver is normal in size with no evidence of abnormal loss of signal on out of phase imaging to suggest fatty infiltration. There is no evidence of abnormal focal signal hepatic abnormality or abnormal focal hypoenhancing or hyperenhancing lesions. The spleen is normal in size with no evidence of focal abnormal signal or abnormal hypo or hyper enhancing lesions. There is a 1.9 cm lesion in the pancreatic head demonstrating heterogeneous low and high T2 signal and low T1 signal with minimal irregular puddling of peripheral contrast, corresponding to the peripheral calcified lesion seen on CT scan. The gallbladder is partially distended with no evidence of gallstones or sludge. There is no abnormal gallbladder wall thickening or surrounding edema. The CBD is normal in caliber with no evidence of filling defects. There is no intrahepatic biliary ductal dilatation. The pancreatic duct and CBD are seen through the ampulla of Vater and appear widely patent. The adrenal glands are unremarkable. The kidneys are symmetrically enhancing with no evidence of enhancing lesions. There is no hydronephrosis. There is no evidence of abdominal lymphadenopathy or abdominal ascites. The visualized osseous structures are grossly unremarkable. IMPRESSION: 1.9 cm partially exophytic pancreatic head lesion with no specific signal characteristics or specific postcontrast enhancement corresponding to peripherally calcified lesion seen on CT scan is of unclear etiology. Statistically this possibly represents a GDA thrombosed aneurysm however other etiologies cannot be determined. Further evaluation with mesenteric CT angiogram is recommended. 09/16/16 08:49: CT/ABDOMEN/PELVIS CTA W/WO CONTR History provided: Follow-up. Sequential axial images were obtained from the domes of the diaphragm through the symphysis pubis prior to and following the demonstration of intravenous contrast. CTA pancreatic protocol was utilized. There is a 1.9 x 1.6 x 1.8 cm heavily calcified mass exophytic to the pancreatic head. The central , noncalcified portion of the mass does demonstrate mild contrast enhancement. The mass has no relationship to any arterial or venous vessel and therefore does not represent an aneurysm. The etiology of the mass remains uncertain and a neoplastic process should be considered. Clinical correlation is advised. The abdominal aorta and its branches are widely patent with no vascular anomalies identified. No significant changes have occurred since a prior CT scan of the abdomen and pelvis dated 2016. IMPRESSION: 1.9 x 1.6 x 1.8 cm heavily calcified exophytic pancreatic head mass demonstrating mild contrast enhancement. The mass does not represent an aneurysm a neoplastic process should be considered. Clinical correlation and follow-up recommended. Please see above discussion. HOSPITAL COURSE: Date of Admission:09/13/16 Date of Discharge: 09/16/16 This is a 25 year old female with a past medical history of asthma and "aneurysm " on head of pancreas who presented with abdominal pain: bilat upper quadrant pain which localizes to epigastric area associated with nausea and one small episode vomiting the day prior to arrival. In the ED abdominal ultrasound was unremarkable for gallbladder pathology and a CT was done. CT revealed calcification in the RUQ of uncertain etiology. MRCP done the following day again without gallbaldder pathology but the calcification was again seen. CTA was done which ruled out an aneurysm but raised concerns for a neoplastic process. GI was consulted. Dr. Yañez cleared pt for DC and recommended further outpatient workup to include an EUS and a possible octreotide scan. A CA 19-9 antigen was ordered and is still pending. Pt has been tolerating a regular diet and is now pain free and feeling much better. Pt DC home with recommendation to f/u with Dr. Yañez as recommended by him. Minutes to complete discharge: 40 Discharge Summary Reason For Visit: ABD PAIN Current Active Problems Abdominal pain (Acute) Lesion of pancreas (Acute) Condition: Stable - Instructions Diet, Activity, Other Instructions: Return to ED for new, worsening or persistent symptoms. F/U with Dr. Yañez as directed by him for EUS-endoscopic ultrasound. Referrals: Lucio Yañez MD [Staff Physician] - Disposition: HOME - Home Medications Comprehensive Discharge Medication List: Ambulatory Orders Docusate Sodium [Colace -] 3 cap PO HS #90 cap 09/16/16 Oxycodone HCl [Roxicodone -] 5 mg PO Q4H PRN #10 tablet MDD 6 09/16/16 Pantoprazole Sodium [Protonix -] 40 mg PO DAILY #30 tablet.ec 09/16/16 This patient is new to me today: No Emergency Visit: No ED Registration Date: 09/13/16 Critical Care patient: No - Discharge Referral Referred to [facility] No
== END 2016-09-16 21:41 | disposition home or self-care (01) | DRG 251 ==
LOC: JER 21:06 → J8W 09-14 04:40 → JERBED 09-14 04:53 → INTOOBSV 09-14 04:53 → UNDOADMOB 09-14 04:53 → JERBED 09-14 05:13 → J8W 09-14 05:13 → OBSVTOIN 09-16 08:52
PROVIDERS: ADMIT Internal Medicine; ATTEND Nurse Practitioner Acute Care
DX: R10.11 Right upper quadrant pain (principal); K86.9 Disease of pancreas, unspecified; R10.12 Left upper quadrant pain; J45.909 Unspecified asthma, uncomplicated; F17.210 Nicotine dependence, cigarettes, uncomplicated
CPT/HCPCS: 36415; 74174-TC; 74176-TC; 74182-TC; 76705-TC; 80053; 81003; 82150; 83690; 83735; 84100; 84703; 85025; 85610; 86301; 99283-25; G0378

== ENCOUNTER 2018-03-23 09:53 | Emergency (ER) | payer OTHER ==
[2018-03-23 10:08] VITALS: BP 113/70; PULSE 89; TEMP 98.2; BMI 37.2
--- NOTE | 2018-03-23 10:16 | PDOC ---
Attending Attestation - Resident Resident Name: Kp Chaudhari - HPI HPI: 03/23/18 13:03 pt presents to the ED complaining of worsening of her chronic epigastric pain. Patient has a longstanding history of this pain and was diagnosed here with a pancreatic mass, but never had biopsy because she has been lost to follow up multiple times. States that her pain is different today because it includes her whole back as well as her abdomen. Denies fever or urinary complaints. Does complain of nausea without vomiting. 03/23/18 13:27 - Physicial Exam PE: 03/23/18 13:32 Agree with resident exam. Patient is alert and oriented and in no acute distress. Abdomen is non tender to deep palpation. - Medical Decision Making 03/23/18 13:34 Pt presents to the ED complaining of acute exacerbation of her chronic epigastric pain with minimal associated symptoms. Abdomen is non tender on my exam. Differential includes chronic pancreatic mass, pyelonephritis, biliary obstruction, ectopic . U preg is positive, so will check pelvic exam and Us to rule out ectopic.
[2018-03-23] MEDS ORDERED: KETOROLAC TROMETHAMINE 10 MG TABLET PO ONE (10:41)
--- NOTE | 2018-03-23 11:13 | PDOC ---
History of Present Illness - General Chief Complaint: Pain, Acute Stated Complaint: ABD PAIN Time Seen by Provider: 03/23/18 10:04 Past History - Past Medical History Allergies/Adverse Reactions: Allergies Allergy/AdvReac Type Severity Reaction Status Date / Time No Known Allergies Allergy Verified 09/13/16 21:10 Home Medications: Ambulatory Orders Docusate Sodium [Colace -] 3 cap PO HS #90 cap 09/16/16 Pantoprazole Sodium [Protonix -] 40 mg PO DAILY #30 tablet.ec 09/16/16 oxyCODONE HCL [Roxicodone -] 5 mg PO Q4H PRN #10 tablet MDD 6 09/16/16 Asthma: Yes COPD: No - Immunization History Immunization Up to Date: Yes - Suicide/Smoking/Psychosocial Hx Smoking History: Current every day smoker Have you smoked in the past 12 months: Yes Number of Cigarettes Smoked Daily: 7 Information on smoking cessation initiated: No 'Breaking Loose' booklet given: 04/09/16 Hx Alcohol Use: Yes Drug/Substance Use Hx: No Substance Use Type: None *Physical Exam - Vital Signs Last Vital Signs Temp Pulse Resp BP Pulse Ox 98.2 F 89 16 113/70 100 03/23/18 10:03 03/23/18 10:03 03/23/18 10:03 03/23/18 10:03 03/23/18 10:03 ED Treatment Course - LABORATORY CBC & Chemistry Diagram: 03/23/18 11:19 03/23/18 12:37 *DC/Admit/Observation/Transfer Diagnosis at time of Disposition: at early stage Abdominal pain Qualifiers: Abdominal location: left lower quadrant Qualified Code(s): R10.32 - Left lower quadrant pain - Discharge Dispostion Disposition: HOME Condition at time of disposition: Stable Decision to Admit order: No - Referrals Referrals: [facility] at [place] [Provider Group] Vini Alcantar MD [Staff Physician] - - Patient Instructions Printed Discharge Instructions: DI for -- Discomforts and Remedies Additional Instructions: Your abdominal pain is likely related to your chronic abdominal pain. You need to see a pancreatic doctor. I have included the number for the [facility] in this packet. You will need to call to make an appointment. Your ultrasound showed a normal appearing . Using 2017 as your last menstrual period, your is approx. 6 weeks and 3 days along. You need to make an appointment with an OBGYN. I have referred you to Dr. Alcantar. The clinic will call you within 1-2 business days to make an appointment. You need a primary care doctor to help make sure you see the doctors you need. I have entered a referral for you to see a primary care physician at [facility] Internal Medicine at [facility] care [facility]. The clinic will call you within 1-2 business days to make an appointment. Go to the nearest emergency department if your condition worsens or you feel like you need additional emergency evaluation. Print Language: VINCENTIAN - Post Discharge Activity
[2018-03-23] MEDS ORDERED: IBUPROFEN 600 MG TABLET (FP) PO ONE ×2 (11:17→12:35)
[2018-03-23 11:39] LABS: BASO % 1.2 % (0-2.0); EOS % 1.5 % (0-4.5); HEMATOCRIT 40.6 % (32.4-45.2); HEMOGLOBIN 12.9 GM/dL (10.7-15.3); LYMPH % 41.5 % (8-40); MCH 25.2 pg (25.7-33.7); MCHC 31.8 g/dl (32.0-36.0); MEAN CELL VOLUME 79.1 fl (80-96); MEAN PLT VOLUME 11.5 fl (7.5-11.1); MONO % 9.6 % (3.8-10.2); NEUT % 46.2 % (42.8-82.8); PLATELET COUNT 77 K/MM3 (134-434); RBC 5.14 M/mm3 (3.60-5.2); RDW 15.6 % (11.6-15.6); WHITE BLOOD COUNT 5.1 K/mm3 (4.0-10.0)
[2018-03-23 11:40] LABS: URINE APPEARANCE CLEAR; URINE BILIRUBIN NEGATIVE (<2.0 mg/dL); URINE COLOR YELLOW; URINE GLUCOSE (UA) NEGATIVE (NEGATIVE); URINE KETONE NEGATIVE (NEGATIVE); URINE LEUK ESTERASE NEGATIVE (NEGATIVE); URINE NITRITE NEGATIVE (NEGATIVE); URINE PROTEIN NEGATIVE (NEGATIVE); URINE UROBILINOGEN NEGATIVE mg/dL (0.2-1.0)
[2018-03-23 13:17] LABS: ALBUMIN 3.5 g/dl (3.4-5.0); ALK PHOS 45 U/L (45-117); ANION GAP 9 MMOL/L (8-16); BILIRUBIN,TOTAL 0.5 mg/dL (0.2-1); BLOOD UREA NITROGEN 9 mg/dL (7-18); CALCIUM 8.6 mg/dL (8.5-10.1); CHLORIDE 106 mmol/L (98-107); CO2 23 mmol/L (21-32); CREATININE 0.6 mg/dL (0.55-1.3); GLUCOSE,RANDOM 81 mg/dL (74-106); LIPASE 82 U/L (73-393); POTASSIUM 4.1 mmol/L (3.5-5.1); SGOT/AST 22 U/L (15-37); SGPT/ALT 29 U/L (13-61); SODIUM 139 mmol/L (136-145); TOT PROT 6.8 g/dl (6.4-8.2)
== END 2018-03-23 17:13 | disposition home or self-care (01) ==
LOC: JER 09:53
DX: O26.891 Other specified pregnancy related conditions, first trimester (principal); R10.32 Left lower quadrant pain; O99.611 Diseases of the digestive system complicating pregnancy, first trimester; K92.89 Other specified diseases of the digestive system; K83.8 Other specified diseases of biliary tract; Z3A.01 Less than 8 weeks gestation of pregnancy
CPT/HCPCS: 36415; 76801-TC; 76817-TC; 80053; 81003; 83690; 84702; 84703; 85025; 87086; 99282-25

== ENCOUNTER 2018-04-03 23:51 | Emergency (ER) | payer OTHER ==
[2018-04-04 02:21] VITALS: TEMP 98.1; BMI 40.3
[2018-04-04] MEDS ORDERED: ACETAMINOPHEN 1000 MG/100 ML VIAL (NON FORMULARY) IVPB ONE (02:34)
[2018-04-04] MEDS ORDERED: SODIUM CHLORIDE 1,000 ML IV STA (02:34)
--- NOTE | 2018-04-04 02:47 | PDOC ---
History of Present Illness - General Chief Complaint: Pain Stated Complaint: ABD PAIN Time Seen by Provider: 04/04/18 02:25 History Source: Patient Exam Limitations: No Limitations - History of Present Illness Initial Comments: 04/04/18 02:47 27 year old female with PMH of obesity, thrombocytopenia, pancreatic tumor ( under evaluation as an outpatient), 2 , irregular menstrual cycles p/w RLQ pain x several days. Three days ago, the patient has started to develop some intermittent nonbloody loose stools. Two days ago, developed constant RLQ worsened with palpation and movement. No fevers, nausea, vomiting. Denies diarrhea. The patient does report chronic vaginal slight bleeding since her miscarriage in February 2018. The patient is following up as an outpatient for this. Because of the persistence of symptoms, came into the ER. Past History - Past Medical History Allergies/Adverse Reactions: Allergies Allergy/AdvReac Type Severity Reaction Status Date / Time No Known Allergies Allergy Verified 09/13/16 21:10 Home Medications: Ambulatory Orders Docusate Sodium [Colace -] 3 cap PO HS #90 cap 09/16/16 Pantoprazole Sodium [Protonix -] 40 mg PO DAILY #30 tablet.ec 09/16/16 oxyCODONE HCL [Roxicodone -] 5 mg PO Q4H PRN #10 tablet MDD 6 09/16/16 Asthma: Yes COPD: No - Immunization History Immunization Up to Date: Yes - Suicide/Smoking/Psychosocial Hx Smoking History: Never smoked Have you smoked in the past 12 months: Yes Number of Cigarettes Smoked Daily: 7 'Breaking Loose' booklet given: 04/09/16 Hx Alcohol Use: No Drug/Substance Use Hx: No Substance Use Type: None Review of Systems - Review of Systems Able to Perform ROS?: Yes Comments:: 04/04/18 02:53 GENERAL/CONSTITUTIONAL: [No fever or chills. No weakness. No weight change.] HEAD, EYES, EARS, NOSE AND THROAT: [No change in vision. No ear pain or discharge. No sore throat.] CARDIOVASCULAR: [No chest pain or shortness of breath.] RESPIRATORY: [No cough, wheezing, or hemoptysis.] GASTROINTESTINAL: [No nausea, vomiting,constipation. No rectal bleeding.] + abdominal pain and diarrhea. GENITOURINARY: [No dysuria, frequency, or change in urination.] MUSCULOSKELETAL: [No joint or muscle swelling or pain. No neck or back pain.] SKIN AND BREASTS: [No rash or easy bruising.] NEUROLOGIC: [No headache, vertigo, loss of consciousness, or loss of sensation.] PSYCHIATRIC: [No depression or anxiety.] ENDOCRINE: [No increased thirst. No abnormal weight change.] HEMATOLOGIC/LYMPHATIC: [No anemia, easy bleeding, or history of blood clots.] ALLERGIC/IMMUNOLOGIC: [No hives or skin allergy. No latex allergy.] *Physical Exam - Vital Signs Last Vital Signs Temp Pulse Resp BP Pulse Ox 98.1 F 71 15 107/58 L 100 04/04/18 01:50 04/04/18 01:50 04/04/18 01:50 04/04/18 01:50 04/04/18 01:50 - Physical Exam Comments: 04/04/18 02:54 GENERAL: Awake, alert, and fully oriented, in no acute distress. Obese HEAD: No signs of trauma EYES: EOMI, sclera anicteric, conjunctiva clear ENT: Auricles normal inspection, hearing grossly normal, nares patent, Moist mucosa NECK: Normal ROM, supple ABDOMEN: Soft, TTP suprapubic and right mid lower abdomen. No guarding, no rebound. No masses EXTREMITIES: Normal range of motion, no edema. No clubbing or cyanosis. No cords, erythema, or tenderness NEUROLOGICAL: Cranial nerves II through XII grossly intact. Normal speech SKIN: Warm, Dry, normal turgor, no rashes or lesions noted. ED Treatment Course - LABORATORY CBC & Chemistry Diagram: 04/04/18 03:45 04/04/18 03:45 - RADIOLOGY Radiology Studies Ordered: Category Date Time Status ABDOMEN & PELVIS CT WITH CONTR [CT] Stat CT Scan 04/04/18 02:34 Ordered Medical Decision Making - Medical Decision Making 04/04/18 02:55 Vital Signs Temp Pulse Resp BP Pulse Ox 98.1 F 71 15 107/58 L 100 04/04/18 01:50 04/04/18 01:50 04/04/18 01:50 04/04/18 01:50 04/04/18 01:50 Pt with lower abd pain pain and diarrhea. Differential includes miscarriage, colitis, gastroenteritis. Labs, UA, serum preg. 04/04/18 05:03 CBC, BMP 04/04/18 03:45 04/04/18 03:45 CMP Sodium 140 mmol/L (136-145) 04/04/18 03:45 Potassium 4.4 mmol/L (3.5-5.1) 04/04/18 03:45 Chloride 108 mmol/L (98-107) H 04/04/18 03:45 Carbon Dioxide 26 mmol/L (21-32) 04/04/18 03:45 Anion Gap 6 MMOL/L (8-16) L 04/04/18 03:45 BUN 11 mg/dL (7-18) 04/04/18 03:45 Creatinine 0.6 mg/dL (0.55-1.3) 04/04/18 03:45 Creat Clearance w eGFR > 60 (>60) 04/04/18 03:45 Random Glucose 74 mg/dL (74-106) 04/04/18 03:45 Calcium 8.3 mg/dL (8.5-10.1) L 04/04/18 03:45 Total Bilirubin 0.3 mg/dL (0.2-1) 04/04/18 03:45 AST 32 U/L (15-37) 04/04/18 03:45 ALT 44 U/L (13-61) 04/04/18 03:45 Alkaline Phosphatase 44 U/L (45-117) L 04/04/18 03:45 Total Protein 6.6 g/dl (6.4-8.2) 04/04/18 03:45 Albumin 3.4 g/dl (3.4-5.0) 04/04/18 03:45 Lipase 108 U/L (73-393) 04/04/18 03:45 Will obtain a beta HCG. (The patient had told me that she had positive before, but with the continual bleeding, she followed up with an ASSISTANT DIRECTOR OF ADMISSIONS. She had a beta HCG (which she doesn't know the results of) and an ultrasound and was told that she was miscarrying). Will obtain transvaginal ultrasound. The pain could be from the miscarriage. Will check for retained products of conception. Patient currently denies bleeding now. Less likely to be appendicitis. 04/04/18 05:50
[2018-04-04 03:56] LABS: BASO % 0.8 % (0-2.0); EOS % 1.7 % (0-4.5); HEMATOCRIT 38.9 % (32.4-45.2); HEMOGLOBIN 13.2 GM/dL (10.7-15.3); LYMPH % 41.2 % (8-40); MCH 27.2 pg (25.7-33.7); MEAN CELL VOLUME 79.9 fl (80-96); MEAN PLT VOLUME 11.6 fl (7.5-11.1); MONO % 9.2 % (3.8-10.2); NEUT % 47.1 % (42.8-82.8); PLATELET COUNT 85 K/MM3 (134-434); RBC 4.87 M/mm3 (3.60-5.2); RDW 16.4 % (11.6-15.6); WHITE BLOOD COUNT 6.5 K/mm3 (4.0-10.0)
[2018-04-04] MEDS ORDERED: ACETAMINOPHEN INJECTION 100 ML IVPB ONE (04:09)
[2018-04-04 04:52] LABS: ALBUMIN 3.4 g/dl (3.4-5.0); ALK PHOS 44 U/L (45-117); ANION GAP 6 MMOL/L (8-16); BILIRUBIN,TOTAL 0.3 mg/dL (0.2-1); BLOOD UREA NITROGEN 11 mg/dL (7-18); CALCIUM 8.3 mg/dL (8.5-10.1); CHLORIDE 108 mmol/L (98-107); CO2 26 mmol/L (21-32); CREATININE 0.6 mg/dL (0.55-1.3); GLUCOSE,RANDOM 74 mg/dL (74-106); LIPASE 108 U/L (73-393); POTASSIUM 4.4 mmol/L (3.5-5.1); SGOT/AST 32 U/L (15-37); SGPT/ALT 44 U/L (13-61); SODIUM 140 mmol/L (136-145); TOT PROT 6.6 g/dl (6.4-8.2)
[2018-04-04 05:35] LABS: HCG,QUALITATIVE URINE Positive
[2018-04-04 05:36] LABS: URINE APPEARANCE CLOUDY; URINE BILIRUBIN NEGATIVE (<2.0 mg/dL); URINE COLOR RED; URINE GLUCOSE (UA) NEGATIVE (NEGATIVE); URINE KETONE NEGATIVE (NEGATIVE); URINE LEUK ESTERASE 1+ (NEGATIVE); URINE NITRITE NEGATIVE (NEGATIVE); URINE PROTEIN 2+ (NEGATIVE); URINE UROBILINOGEN NEGATIVE mg/dL (0.2-1.0)
[2018-04-04 06:15] LABS: EPI CELLS MODERATE /HPF (FEW); URINE BACTERIA RARE /hpf (NONE SEEN); URINE MUCUS FEW
[2018-04-04 09:59] VITALS: BP 106/53; PULSE 64
--- NOTE | 2018-04-04 10:18 | PDOC ---
*Physical Exam - Vital Signs Last Vital Signs Temp Pulse Resp BP Pulse Ox 98.1 F 64 18 106/53 L 99 04/04/18 09:58 04/04/18 09:58 04/04/18 09:58 04/04/18 09:58 04/04/18 09:58 <Mason Rebolledo - Last Filed: 04/04/18 10:38> - Vital Signs Last Vital Signs Temp Pulse Resp BP Pulse Ox 98.1 F 64 18 106/53 L 99 04/04/18 09:58 04/04/18 09:58 04/04/18 09:58 04/04/18 09:58 04/04/18 09:58 <Brian Collins - Last Filed: 04/04/18 11:33> ED Treatment Course - LABORATORY CBC & Chemistry Diagram: 04/04/18 03:45 04/04/18 03:45 - ADDITIONAL ORDERS Additional order review: Laboratory Results 04/04/18 04/04/18 04/04/18 06:01 05:28 05:11 Sodium Potassium Chloride Carbon Dioxide Anion Gap BUN Creatinine Creat Clearance w eGFR Random Glucose Calcium Total Bilirubin AST ALT Alkaline Phosphatase Total Protein Albumin Lipase Beta HCG, Quant 2249.0 Serum , Qual Positive Urine Color Urine Appearance Urine pH Ur Specific [place] Urine Protein Urine Glucose (UA) Urine Ketones Urine Blood Urine Nitrite Urine Bilirubin Urine Urobilinogen Ur Leukocyte Esterase Urine WBC (Auto) Urine RBC (Auto) Ur Epithelial Cells Urine Bacteria Urine Mucus Urine HCG, Qual Blood Type O POSITIVE Antibody Screen Negative 04/04/18 04/04/18 03:51 03:45 Sodium 140 Potassium 4.4 Chloride 108 H Carbon Dioxide 26 Anion Gap 6 L BUN 11 Creatinine 0.6 Creat Clearance w eGFR > 60 Random Glucose 74 Calcium 8.3 L Total Bilirubin 0.3 AST 32 ALT 44 Alkaline Phosphatase 44 L Total Protein 6.6 Albumin 3.4 Lipase 108 Beta HCG, Quant Serum , Qual Urine Color Red Urine Appearance Cloudy Urine pH 6.0 Ur Specific [place] 1.029 Urine Protein 2+ H Urine Glucose (UA) Negative Urine Ketones Negative Urine Blood 3+ H Urine Nitrite Negative Urine Bilirubin Negative Urine Urobilinogen Negative Ur Leukocyte Esterase 1+ H Urine WBC (Auto) 238 Urine RBC (Auto) 509 Ur Epithelial Cells Moderate Urine Bacteria Rare Urine Mucus Few Urine HCG, Qual Positive Blood Type Antibody Screen 04/04/18 03:45 RBC 4.87 MCV 79.9 L MCHC 34.0 RDW 16.4 H MPV 11.6 H Neutrophils % 47.1 Lymphocytes % 41.2 H Monocytes % 9.2 Eosinophils % 1.7 Basophils % 0.8 - Medications Given in the ED: ED Medications Discontinued Medications Generic Name Dose Route Start Last Admin Trade Name Radha PRN Reason Stop Dose Admin Acetaminophen 1,000 mg 04/04/18 02:34 04/04/18 04:23 Ofirmev Injection - IVPB 04/04/18 02:35 1,000 mg ONCE ONE Administration Sodium Chloride 1,000 mls @ 1,000 mls/hr 04/04/18 02:34 04/04/18 04:23 Normal Saline - IV 04/04/18 03:33 1,000 mls/hr ASDIR STA Administration <Mason Rebolledo - Last Filed: 04/04/18 10:38> - LABORATORY CBC & Chemistry Diagram: 04/04/18 03:45 04/04/18 03:45 - ADDITIONAL ORDERS Additional order review: Laboratory Results 04/04/18 04/04/18 04/04/18 06:01 05:28 05:11 Sodium Potassium Chloride Carbon Dioxide Anion Gap BUN Creatinine Creat Clearance w eGFR Random Glucose Calcium Total Bilirubin AST ALT Alkaline Phosphatase Total Protein Albumin Lipase Beta HCG, Quant 2249.0 Serum , Qual Positive Urine Color Urine Appearance Urine pH Ur Specific [place] Urine Protein Urine Glucose (UA) Urine Ketones Urine Blood Urine Nitrite Urine Bilirubin Urine Urobilinogen Ur Leukocyte Esterase Urine WBC (Auto) Urine RBC (Auto) Ur Epithelial Cells Urine Bacteria Urine Mucus Urine HCG, Qual Blood Type O POSITIVE Antibody Screen Negative 04/04/18 04/04/18 03:51 03:45 Sodium 140 Potassium 4.4 Chloride 108 H Carbon Dioxide 26 Anion Gap 6 L BUN 11 Creatinine 0.6 Creat Clearance w eGFR > 60 Random Glucose 74 Calcium 8.3 L Total Bilirubin 0.3 AST 32 ALT 44 Alkaline Phosphatase 44 L Total Protein 6.6 Albumin 3.4 Lipase 108 Beta HCG, Quant Serum , Qual Urine Color Red Urine Appearance Cloudy Urine pH 6.0 Ur Specific [place] 1.029 Urine Protein 2+ H Urine Glucose (UA) Negative Urine Ketones Negative Urine Blood 3+ H Urine Nitrite Negative Urine Bilirubin Negative Urine Urobilinogen Negative Ur Leukocyte Esterase 1+ H Urine WBC (Auto) 238 Urine RBC (Auto) 509 Ur Epithelial Cells Moderate Urine Bacteria Rare Urine Mucus Few Urine HCG, Qual Positive Blood Type Antibody Screen 04/04/18 03:45 RBC 4.87 MCV 79.9 L MCHC 34.0 RDW 16.4 H MPV 11.6 H Neutrophils % 47.1 Lymphocytes % 41.2 H Monocytes % 9.2 Eosinophils % 1.7 Basophils % 0.8 - Medications Given in the ED: ED Medications Discontinued Medications Generic Name Dose Route Start Last Admin Trade Name Radha PRN Reason Stop Dose Admin Acetaminophen 1,000 mg 04/04/18 02:34 04/04/18 04:23 Ofirmev Injection - IVPB 04/04/18 02:35 1,000 mg ONCE ONE Administration Sodium Chloride 1,000 mls @ 1,000 mls/hr 04/04/18 02:34 04/04/18 04:23 Normal Saline - IV 04/04/18 03:33 1,000 mls/hr ASDIR STA Administration <Brian Collins - Last Filed: 04/04/18 11:33> Medical Decision Making - Medical Decision Making 04/04/18 10:38 delayed history, but patient ultimately endorsed medical TOP, appropriate decrease in HCG, RH POS, sono consistent with miscarriage. has sisal picker f/u, can be d/c with return precautions. <Mason Rebolledo - Last Filed: 04/04/18 10:38> - Medical Decision Making 04/04/18 10:16 27 yo female presents to the ED with vaginal bleeding and abdominal pain. Vag bleeding has stopped. Pt failed to tell the prior team that she had a planned (due to fear of being judged) through [facility] (OB unknown) last Tue and took the second dose of medication . Beta HCG has been trending down according to patients OB as far as she can remember. Transvag US shows likely findings of failed IUP and impeding with follow up study recommended. Pt resting comfortably in the room without current complaints. RH + Will send home with OB follow up <Brian Collins - Last Filed: 04/04/18 11:33> *DC/Admit/Observation/Transfer <Mason Rebolledo - Last Filed: 04/04/18 10:38> - Discharge Dispostion Decision to Admit order: No <Brian Collins - Last Filed: 04/04/18 11:33> Diagnosis at time of Disposition: - Discharge Dispostion Disposition: HOME Condition at time of disposition: Stable - Patient Instructions Printed Discharge Instructions: DI for Therapeutic : Medical Additional Instructions: Please follow up with your OB doctor and keep your appointment tomorrow at [facility] clinic. Also make an appointment with your Primary Care Doctor within the next 24-28 hours. Return to the Emergency Room for new or worsening symptoms including but not limited to: severe abdominal pain not relieved by over the counter medication, profuse vaginal bleeding, weakness, high fevers or nausea/vomiting. Take over the counter Tylenol and Motrin for your abdominal pain every 4-6 hours as needed Thank you
[2018-04-04] MEDS ORDERED: ACETAMINOPHEN 325 MG TABLET (FP) PO ONE (10:59)
[2018-04-04] MEDS ORDERED: ACETAMINOPHEN 325 MG TABLET (FP) ONE (11:32)
== END 2018-04-04 11:50 | disposition home or self-care (01) ==
LOC: JER 23:51
DX: O03.9 Complete or unspecified spontaneous abortion without complication (principal); O26.891 Other specified pregnancy related conditions, first trimester; Z3A.00 Weeks of gestation of pregnancy not specified
CPT/HCPCS: 36415; 76817-TC; 80053; 81003; 81015; 83690; 84702; 84703; 85025; 86850; 86900; 86901; 87086; 99282-25; J0131; J7030

== ENCOUNTER 2018-08-28 16:55 | Emergency (ER) | payer OTHER ==
[2018-08-28 17:08] VITALS: BP 127/71; PULSE 81; TEMP 98.1; BMI 39.5
--- NOTE | 2018-08-28 17:08 | PDOC ---
Rapid Medical Evaluation Time Seen by Provider: 08/28/18 17:04 Medical Evaluation: Allergies Allergy/AdvReac Type Severity Reaction Status Date / Time No Known Allergies Allergy Verified 09/13/16 21:10 08/28/18 17:05 I have performed a brief in-person evaluation of this patient. The patient presents with a chief complaint of:neck/upper pain s/p fall this am. No head injury or LOC Pertinent physical exam findings:Stable and well fabby w/ +ttp over R shoulder blade I have ordered the following:nothing The patient will proceed to the ED for further evaluation. Discharge Disposition - Diagnosis Back strain Qualifiers: Encounter type: initial encounter Qualified Code(s): S39.012A - Strain of muscle, fascia and tendon of lower back, initial encounter Fall Qualifiers: Encounter type: initial encounter Qualified Code(s): W19.XXXA - Unspecified fall, initial encounter - Referrals - Patient Instructions - Post Discharge Activity
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
== END 2018-08-28 18:19 | disposition home or self-care (01) ==
LOC: JERFT 16:55
DX: S13.4XXA Sprain of ligaments of cervical spine, initial encounter (principal); S39.012A Strain of muscle, fascia and tendon of lower back, initial encounter; W18.39XA Other fall on same level, initial encounter; Y93.89 Activity, other specified; Y92.89 Other specified places as the place of occurrence of the external cause; Y99.8 Other external cause status
CPT/HCPCS: 99281-25

== ENCOUNTER 2018-09-19 01:10 | Emergency (ER) | payer OTHER | END 2018-09-19 07:11 | disposition home or self-care (01) | LOC: JER 01:10 ==

== ENCOUNTER 2018-10-14 17:35 | Emergency (ER) | payer OTHER ==
[2018-10-14 17:49] VITALS: TEMP 97.8; BMI 41.5
--- NOTE | 2018-10-14 19:08 | PDOC ---
History of Present Illness - General Chief Complaint: Vaginal Bleeding Stated Complaint: ABD/PAIN BLEEDING Time Seen by Provider: 10/14/18 19:07 - History of Present Illness Initial Comments: Ms Sariah Harper is a 27yo woman with a PMH of asthma and pancreatic mass ( under workup) who presents with one month of vaginal bleeding that has become heavier over the past week. She states that she has currently been going through 2 pads per hour, and she says that she has noticed large clots. She also has lower abdominal cramping and low back pain. The symptoms are similar to her regular period, but she says that her period only lasts 3 days usually. She has not noticed any vaginal symptoms prior to the bleeding, and she has no concerns for infection. She does not believe she could be . She does see gynecology in the [place] but was not able to get an appointment until December. She says that she has felt dizzy a few times recently, but she denies any syncope, difficulty breathing, nausea/vomiting or other recent symptoms. Past History - Past Medical History Allergies/Adverse Reactions: Allergies Allergy/AdvReac Type Severity Reaction Status Date / Time No Known Allergies Allergy Verified 09/19/18 01:44 Home Medications: Ambulatory Orders NK [No Known Home Medication] 09/19/18 Asthma: Yes COPD: No - Reproductive History Is Patient Now?: No - Immunization History Immunization Up to Date: Yes - Suicide/Smoking/Psychosocial Hx Smoking History: Current every day smoker Have you smoked in the past 12 months: Yes Number of Cigarettes Smoked Daily: 2 Information on smoking cessation initiated: No 'Breaking Loose' booklet given: 04/09/16 Hx Alcohol Use: No Drug/Substance Use Hx: No Substance Use Type: None Review of Systems - Review of Systems Comments:: General: No fevers, no chills, no weight or appetite change, no malaise HEENT: No changes in vision, no changes in hearing, no congestion, no sore throat CV: No chest pain, no palpitations, no LE edema. +occasionally dizzy Pulm: No SOB, no cough, no wheezing GI: No nausea or vomiting, no change in bowel habits, no melena : No frequency, no urgency, no dysuria. See HPI Musc: No back pain, no joint swelling, no recent injury Skin: No rash, no lesions, no erythema Endo: No excessive thirst, no heat/cold intolerance Heme: No unusual bruising or bleeding, no swollen glands Neuro: No syncope, no numbness/tingling, no focal weakness Vasc: No claudication Psych: No recent change in mood, no SI or HI *Physical Exam - Vital Signs Last Vital Signs Temp Pulse Resp BP Pulse Ox 97.8 F 85 18 106/59 L 99 10/14/18 17:43 10/14/18 17:43 10/14/18 17:43 10/14/18 17:43 10/14/18 17:43 - Physical Exam Comments: General: Comfortable, no acute distress HEENT: PERRL, EOMI, MMM, voice normal, normal neck ROM, no LAD Cards: RRR, no murmur appreciated Pulm: Comfortable on room air, clear to auscultation bilaterally Abd: Soft, nontender, nondistended : No CVA tenderness Vaginal exam: Dried blood on external genitalia, no lesions. Pooling dark blood in vaginal canal. No clots. No lesions or abrasions. No CMT, no adnexal tenderness Ext: Atraumatic. No LE edema. ROM intact. Vasc: Extremities WWP. Skin: Normal color, no rashes or lesions Neuro: A&Ox3, CN grossly intact, normal speech, motor/sensory grossly intact and symmetric Psych: Mood appropriate to situation ED Treatment Course - LABORATORY CBC & Chemistry Diagram: 10/14/18 20:27 10/14/18 20:27 Medical Decision Making - Medical Decision Making 10/14/18 20:07 Ms Sariah Harper is a 27yo woman with a PMH of asthma and pancreatic mass ( under workup) who presents with one month of vaginal bleeding that has become heavier over the past week with associated dizziness. - Given 1mo of bleeding, recent dizziness, concern for possible blood loss anemia. Ddx includes abnormal menstruation, miscarriage, bleeding vaginal/ cervical lesion - CBC, CMP, T&S, urine preg sent - pelvic US 10/14/18 22:18 - US completed, no acute abnormalities - Labs without concerning abnormalities. No anemia. Plan to d/c home with referrals for gynecology - Discussed results w/ Ms Harper. Advised regarding home care, follow up, return precautions. She states understanding and agreement with this plan. Discussed with Joy Parker PGY1 10/15/18 00:52 *DC/Admit/Observation/Transfer Diagnosis at time of Disposition: Abnormal vaginal bleeding - Discharge Dispostion Disposition: HOME Condition at time of disposition: Stable Decision to Admit order: No - Referrals Referrals: Lucian Rodriguez MD [Staff Physician] - Flaquita Ramirez MD [Staff Physician] - Malu Malone MD [Staff Physician] - Corazon Lamar MD [Staff Physician] - Enio Perez MD [Staff Physician] - Eulalia Porter MD [Staff Physician] - Vini Alcantar MD [Staff Physician] - Teressa To DO [Staff Physician] - Ann-Marie Brennan MD [Staff Physician] - - Patient Instructions Printed Discharge Instructions: DI for Abnormal Uterine Bleeding Additional Instructions: Discharge Instructions: You were seen in the emergency department for heavy vaginal bleeding. Your labs showed a normal hemoglobin (red blood) level, and you had an ultrasound without any abnormalities seen. Home Care and Follow Up: - You may use over the counter medications as needed for pain at home. 650- 1000mg acetaminophen (Tylenol) or 600mg ibuprofen (Motrin or Advil) can be used every 6-8 hours. If needed for continued pain, these medications may be alternated every 3-4 hours. For example, if you take ibuprofen at 9am, you may take acetaminophen at noon, ibuprofen at 3pm, etc. - It is strongly recommended that you take ibuprofen with food to help prevent stomach irritation. If you are taking it for more than a day or two, you may consider taking an acid medication such as Pepcid or Xantac, available over the counter, to protect your stomach. This should be taken first thing in the morning 30-60 minutes before any food or medications. - Try using an ice pack for 20 minutes every hour or a heating pad for additional pain control. These should NOT be used over the lidocaine patch, but you may place them over the areas of pain while the patch is off. - Do not stop moving around. As much as you can tolerate, continue to do light exercise and stretching exercises. Increase your activity level as much as you can tolerate daily. - If your pain does not improve over the next week, you have been referred to gynecology for follow up. Try to make an appointment next week or as soon as possible - Seek immediate medical care if you have significant worsening of your symptoms , you become lightheaded or faint, you have shortness of breath, you have chest pain, or you have any other medical emergency. - Post Discharge Activity
[2018-10-14 20:39] LABS: BASO % 1.4 % (0-2.0); EOS % 0.9 % (0-4.5); HEMATOCRIT 38.2 % (32.4-45.2); HEMOGLOBIN 12.4 GM/dL (10.7-15.3); LYMPH % 43.2 % (8-40); MCH 26.2 pg (25.7-33.7); MCHC 32.6 g/dl (32.0-36.0); MEAN CELL VOLUME 80.5 fl (80-96); MEAN PLT VOLUME 11.2 fl (7.5-11.1); MONO % 7.9 % (3.8-10.2); NEUT % 46.6 % (42.8-82.8); RBC 4.74 M/mm3 (3.60-5.2); RDW 15.4 % (11.6-15.6); WHITE BLOOD COUNT 6.4 K/mm3 (4.0-10.0)
[2018-10-14 20:55] LABS: PROTHROMBIN TIME (PATIENT) 11.8 SEC (9.7-13.0)
[2018-10-14 21:06] LABS: ALBUMIN 3.8 g/dl (3.4-5.0); ALK PHOS 54 U/L (45-117); ANION GAP 4 MMOL/L (8-16); BILIRUBIN,TOTAL 0.3 mg/dL (0.2-1); CALCIUM 8.8 mg/dL (8.5-10.1); CHLORIDE 108 mmol/L (98-107); CO2 27 mmol/L (21-32); CREATININE 0.8 mg/dL (0.55-1.3); GLUCOSE,RANDOM 84 mg/dL (74-106); POTASSIUM 4.1 mmol/L (3.5-5.1); SGOT/AST 19 U/L (15-37); SGPT/ALT 26 U/L (13-61); SODIUM 139 mmol/L (136-145); TOT PROT 7.1 g/dl (6.4-8.2)
[2018-10-14] MEDS ORDERED: SODIUM CHLORIDE 0.9% 500 ML INFUS.BAG IV ONE (21:40)
[2018-10-14 21:51] LABS: PLATELET COUNT 107 K/MM3 (134-434); PLATELET ESTIMATE DECREASED
--- NOTE | 2018-10-14 22:40 | PDOC ---
Documentation entered by Vicente Husain SCRIBE, acting as scribe for Karin De Leon MD. Karin De Leon MD: This documentation has been prepared by the Rodrigue sanford Xhesika, SCRIBE, under my direction and personally reviewed by me in its entirety. I confirm that the documentation accurately reflects all work, treatment, procedures, and medical decision making performed by me. Attending Attestation - Resident Resident Name: DelfinoJoy - ED Attending Attestation I have performed the following: I have examined & evaluated the patient, The case was reviewed & discussed with the resident, I agree w/resident's findings & plan - HPI HPI: 10/14/18 20:44 The patient is a 27 year old female, with a significant PMH of asthma and pancreatic mass who presents to the emergency department with 1 month of heavy vaginal bleeding with clots. The patient states she has been going through 2 pads every hour. The patient states she has been endorsing abdominal cramping, back cramping, and fatigue, secondary to her symptoms. The patient states she has an appointment to see her [facility] in December. The patient denies chest pain, shortness of breath, headache and dizziness. Denies fever, chills, nausea, vomiting, diarrhea and constipation. Denies dysuria, frequency, urgency. Allergies: NKDA - Physicial Exam PE: 10/14/18 20:52 GENERAL: Awake, alert, and fully oriented, in no acute distress HEAD: No signs of trauma. No dizziness. EYES: PERRLA, EOMI, sclera anicteric, conjunctiva clear ENT: Auricles normal inspection, hearing grossly normal, nares patent, oropharynx clear without exudates. Moist mucosa NECK: Normal ROM, supple, no lymphadenopathy, JVD, or masses LUNGS: Breath sounds equal, clear to auscultation bilaterally. No wheezes, and no crackles HEART: Regular rate and rhythm, normal S1 and S2, no murmurs, rubs or gallops ABDOMEN: Soft, nontender, normoactive bowel sounds. No guarding, no rebound. No masses. No flank pain. Moving all extremities. VAGINAL: (+) mild to moderate active vaginal bleeding with no CMT. EXTREMITIES: Normal range of motion, no edema. No clubbing or cyanosis. No cords, erythema, or tenderness NEUROLOGICAL: Cranial nerves II through XII grossly intact. Normal speech, normal gait SKIN: Warm, Dry, normal turgor, no rashes or lesions noted. - Medical Decision Making 10/14/18 21:16 HB is stable at 12.7; couple months ago it was 14. Pt has normal CBC and chem and INR. She is awating sono of her uterus. Not . 10/14/18 21:17 10/14/18 21:38 Pt has mild active bleed. She is hemodynamically stable. She has a next appt with her [facility] in December. If sono is normal, she willbe stable for discharge to her [facility]. 10/14/18 22:39 Patient Name: TALHA MARTINEZ THIS IS A PRELIMINARY REPORT FROM [facility] DATE OF SERVICE: 2018-10-14 20:45:36 IMAGES: 37 EXAM: Transabdominal pelvic ultrasound and ovarian duplex REASON FOR EXAM: Vaginal bleeding, pelvic pain COMPARISON: None. FINDINGS: Uterine dimensions are 9.9 x 4.6 x 5.1 cm. Endometrial stripe is within normal limits in thickness measuring 1.1cm. Ovary dimensions are 4.2 x 1.8 x 2.5 cm for the right ovary and 3.7 x 2.4 x 2.4 cm for the left ovary. There is intact blood flow demonstrated to the ovaries. Arterial and venous spectral waveforms demonstrated. There is no evidence of torsion. There are no adnexal masses seen. There is no free fluid. 10/15/18 03:37 Pt wants to follow with [facility] affiliated with our hospital; she will follow with director of food and nutrition services [employer]
[2018-10-14 22:53] VITALS: BP 110/63; PULSE 80
== END 2018-10-14 22:52 | disposition home or self-care (01) ==
LOC: JER 17:35
PROC: 3E0337Z Introduction of Electrolytic and Water Balance Substance into Peripheral Vein, Percutaneous Approach (ICD-10-PCS; principal; 2018-10-14)
DX: N93.8 Other specified abnormal uterine and vaginal bleeding (principal); J45.909 Unspecified asthma, uncomplicated; K86.89 Other specified diseases of pancreas
CPT/HCPCS: 36415; 76856-TC; 80053; 84702; 85025; 85610; 85730; 86850; 86900; 86901; 99283-25

== ENCOUNTER 2018-11-07 12:25 | Emergency (ER) | payer OTHER ==
[2018-11-07 12:32] VITALS: BP 101/56; PULSE 95; TEMP 98.5; BMI 40.3
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
== END 2018-11-07 13:49 | disposition home or self-care (01) ==
LOC: JERFT 12:25
DX: S20.212A Contusion of left front wall of thorax, initial encounter (principal); W23.0XXA Caught, crushed, jammed, or pinched between moving objects, initial encounter; Y93.I9 Activity, other involving external motion; Y92.831 Amusement park as the place of occurrence of the external cause; Y99.8 Other external cause status
CPT/HCPCS: 71101-TC-LT-FY; 99281-25

== ENCOUNTER 2019-07-08 10:47 | Emergency (ER) | payer OTHER ==
[2019-07-08 10:53] VITALS: BP 119/74; PULSE 104; TEMP 98.2; BMI 34.3
[2019-07-08] MEDS ORDERED: FAMOTIDINE 20 MG/50 ML IVPB 20 MG/50 ML MG IVPB ONE ×2 (11:35→12:05)
[2019-07-08] MEDS ORDERED: SODIUM CHLORIDE 1,000 ML IV STA (11:35)
[2019-07-08] MEDS ORDERED: ONDANSETRON 4 MG/2 ML VIAL IVPUSH ONE (11:36)
--- NOTE | 2019-07-08 11:44 | PDOC ---
History of Present Illness - General History Source: Patient Exam Limitations: No Limitations - History of Present Illness Initial Comments: 07/08/19 11:38 Patient is a 28-year-old female who presents to the ED with complaint of mid sharp abdominal pain that radiates into her epigastrium for the last 4 days. She states the pain was initially intermittent but it has been constant since yesterday. She does admit to nausea and vomiting. She has vomited 6 times over the last 4 days. 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 She did not require further cancer treatment secondary to the mass being isolated. The patient had her surgery done at [facility]. She states that she does not eat very much but has been able to tolerate some fluids. Her bowel movements have not changed but she does admit to having floating stools since having her Whipple. She does admit to having a low-grade fever intermittently over the last 4 days. She denies any dysuria or hematuria. She denies any blood in her stool or vomitus. <Jaida Pierre - Last Filed: 07/08/19 16:10> <Katya Page - Last Filed: 07/08/19 16:16> - General Chief Complaint: Pain Stated Complaint: ABD PAIN Time Seen by Provider: 07/08/19 11:27 Past History - Past Medical History Anemia: Yes Asthma: Yes Cancer: Yes (pancreatic CA 02/2019) COPD: No - Surgical History Abdominal Surgery: Yes (Whipple 02/2019) - Immunization History Immunization Up to Date: Yes - Psycho Social/Smoking Cessation Hx Smoking History: Never smoked Have you smoked in the past 12 months: Yes Number of Cigarettes Smoked Daily: 2 'Breaking Loose' booklet given: 04/09/16 Hx Alcohol Use: No Drug/Substance Use Hx: No Substance Use Type: None <Jaida Pierre - Last Filed: 07/08/19 16:10> <Katya Paeg - Last Filed: 07/08/19 16:16> - Past Medical History Allergies/Adverse Reactions: Allergies Allergy/AdvReac Type Severity Reaction Status Date / Time No Known Allergies Allergy Verified 07/08/19 10:52 Home Medications: Ambulatory Orders NK [No Known Home Medication] 09/19/18 Review of Systems - Review of Systems Comments:: 07/08/19 11:41 - Review of Systems Able to Perform ROS?: Yes Constitutional: No: Chills, Loss of Appetite, Night Sweats, Weakness; positive intermittent fevers HEENTM: No: Eye Pain, Vision changes, Ear Pain, Throat Pain, Throat Swelling, Mouth Pain, Difficulty Swallowing Respiratory: No: Cough, Shortness of Breath, Wheezing, Sputum Production Cardiac (ROS): No: Chest Pain, Chest Tightness, Palpitations, Irregular Heart Beat, Edema ABD/GI: No: Diarrhea; positive: Nausea, Vomiting, Abdominal Pain : No Dysuria, No Hematuria, No Frequency, No Urgency Musculoskeletal: No: Muscle Pain, Back Pain, Joint Pain, Muscle Weakness, Neck Pain Integumentary: No: Lesions, Rash Neurological: No: Headache, Numbness, Tingling, Weakness, Speech Difficulties <Jaida Pierre - Last Filed: 07/08/19 16:10> *Physical Exam - Vital Signs Last Vital Signs Temp Pulse Resp BP Pulse Ox 98.2 F 104 H 18 119/74 99 07/08/19 10:48 07/08/19 10:48 07/08/19 10:48 07/08/19 10:48 07/08/19 10:48 - Physical Exam 07/08/19 11:41 - Physical Exam General Appearance: Nourished, Appropriately Dressed, No Distress HEENT: EOMI, Normal Voice, No Muffled/Hoarse voice, No Nasal Congestion, No Rhinorrhea, Hearing Grossly Normal Neck: Supple, No Lymphadenopathy (R), No Lymphadenopathy (L), No Rigidity, No Decreased range of motion Respiratory/Chest: Lungs Clear, Normal Breath Sounds. No Respiratory Distress, No Accessory Muscle Use Cardiovascular: Regular Rhythm, Regular Rate, S1, S2 Gastrointestinal/Abdominal: Normal Bowel Sounds, Soft. Mild mid abdominal tenderness to palpation and mild epigastric tenderness to palpation. Abdomen soft and with normal bowel sounds. Abdomen not tympanitic. Negative McBurney' s point tenderness. Negative Marsh sign. No CVA tenderness bilaterally. Musculoskeletal: Normal Inspection. No Decreased Range of Motion Extremity: Normal Capillary Refill, Normal Inspection Integumentary: Normal Color, Dry. 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 apprentice hand II-XII NML intact, Fully Oriented, Alert, Normal Mood/Affect, Normal Response <Jaida Pierre Lizbeth - Last Filed: 07/08/19 16:10> - Vital Signs Last Vital Signs Temp Pulse Resp BP Pulse Ox 98.2 F 104 H 18 119/74 99 07/08/19 10:48 07/08/19 10:48 07/08/19 10:48 07/08/19 10:48 07/08/19 10:48 <Katya Page - Last Filed: 07/08/19 16:16> ED Treatment Course - LABORATORY CBC & Chemistry Diagram: 07/08/19 11:30 07/08/19 11:30 - RADIOLOGY Radiology Studies Ordered: Category Date Time Status ABDOMEN & PELVIS CT WITH CONTR [CT] Stat CT Scan 07/08/19 11:36 Ordered <Ignacio,Jaida D - Last Filed: 07/08/19 16:10> - LABORATORY CBC & Chemistry Diagram: 07/08/19 11:30 07/08/19 11:30 - Medications Given in the ED: ED Medications Discontinued Medications Generic Name Dose Route Start Last Admin Trade Name Radha PRN Reason Stop Dose Admin Famotidine/Sodium Chloride 20 mg in 50 mls @ 100 mls/hr 07/08/19 11:35 12:10 Pepcid 20 Mg Premixed Ivpb - IVPB 07/08/19 12:04 100 mls/hr ONCE ONE Administration Ondansetron HCl 4 mg 07/08/19 11:36 07/08/19 12:10 Zofran Injection IVPUSH 07/08/19 11:37 4 mg ONCE ONE Administration <Katya Page - Last Filed: 07/08/19 16:16> Medical Decision Making - Medical Decision Making 07/08/19 11:42 Assessment: Patient is a 28-year-old female with mid abdominal pain that radiates to her epigastrium. She has a history of Whipple procedure in February 2019 for a low-grade cancer pancreatic tumor. Plan: -Saline lock with IV fluids ordered -Zofran, Pepcid ordered -CT abdomen/pelvis with p.o. and IV contrast -Will reassess 07/08/19 16:10 Pt is resting comfortably and has not had any vomiting in the ED. She is pending the CT read at this time. The patient has been endorsed to PATIENCE Nazario for further eval and treatment. She is stable at the time of endorsement. <Jaida Pierre - Last Filed: 07/08/19 16:10> - Medical Decision Making The patient was seen and evaluated in conjunction with midlevel provider under my direct supervision, ancillary studies were reviewed. I agree with the plan as outlined with PATIENCE Pierre. HPI, workup/dispo as outlined. VS reviewed, no fever , nontoxic. normotensive, mild tachy, likely from pain. give IVF, analgesia, supportive care, CT a/p to eval for intra abdominal process /acute pathology. Vital Signs Temp Pulse Resp BP Pulse Ox 98.2 F 104 H 18 119/74 99 07/08/19 10:48 07/08/19 10:48 07/08/19 10:48 07/08/19 10:48 07/08/19 10:48 07/08/19 12:16 07/08/19 12:16 <Katya Page - Last Filed: 07/08/19 16:16> Discharge - Discharge Information Problems reviewed: Yes <Jaida Pierre - Last Filed: 07/08/19 16:10> <Katya Page - Last Filed: 07/08/19 16:16> - Discharge Information Clinical Impression/Diagnosis: Abdominal pain - Follow up/Referral Referrals: ON STAFF,NOT [Primary Care Provider] - - Patient Discharge Instructions - Post Discharge Activity
[2019-07-08] MEDS ORDERED: ONDANSETRON 4 MG/2 ML VIAL ONE (12:05)
[2019-07-08 12:24] LABS: BASO % 1.1 % (0-2.0); EOS % 0.5 % (0-4.5); HEMATOCRIT 32.4 % (32.4-45.2); HEMOGLOBIN 10.1 GM/dL (10.7-15.3); LYMPH % 37.1 % (8-40); MCHC 31.2 g/dl (32.0-36.0); MEAN PLT VOLUME 10.1 fl (7.5-11.1); MONO % 16.3 % (3.8-10.2); RBC 5.06 M/mm3 (3.60-5.2); RDW 21.6 % (11.6-15.6); WHITE BLOOD COUNT 3.2 K/mm3 (4.0-10.0)
[2019-07-08 12:49] LABS: ALBUMIN 3.4 g/dl (3.4-5.0); BILIRUBIN,TOTAL 0.3 mg/dL (0.2-1); BLOOD UREA NITROGEN 10.6 mg/dL (7-18); CALCIUM 8.7 mg/dL (8.5-10.1); CREATININE 0.7 mg/dL (0.55-1.3); POTASSIUM 4.4 mmol/L (3.5-5.1); TOT PROT 6.8 g/dl (6.4-8.2)
[2019-07-08 13:20] LABS: PH,URINE 5.5 (5.0-8.0); URINE APPEARANCE CLOUDY; URINE BILIRUBIN NEGATIVE (NEGATIVE); URINE COLOR YELLOW; URINE GLUCOSE (UA) NEGATIVE (NEGATIVE); URINE KETONE NEGATIVE (NEGATIVE); URINE LEUK ESTERASE NEGATIVE (NEGATIVE); URINE NITRITE NEGATIVE (NEGATIVE); URINE PROTEIN NEGATIVE (NEGATIVE); URINE UROBILINOGEN 0.2 mg/dL (0.2-1.0)
[2019-07-08 13:48] LABS: PLATELET COUNT 88 K/MM3 (134-434)
[2019-07-08] MEDS ORDERED: morphine CARPU-JECT 4 MG/1 ML DISP.SYRIN IVPUSH ONE (14:18)
[2019-07-08] MEDS ORDERED: morphine SULFATE 4 MG/ML VIAL ONE (16:15)
--- NOTE | 2019-07-08 16:24 | PDOC ---
*Physical Exam - Vital Signs Last Vital Signs Temp Pulse Resp BP Pulse Ox 98.2 F 104 H 18 119/74 99 07/08/19 10:48 07/08/19 10:48 07/08/19 10:48 07/08/19 10:48 07/08/19 10:48 <Audrey Barakat - Last Filed: 07/08/19 19:12> - Vital Signs Last Vital Signs Temp Pulse Resp BP Pulse Ox 98.2 F 104 H 18 119/74 99 07/08/19 10:48 07/08/19 10:48 07/08/19 10:48 07/08/19 10:48 07/08/19 10:48 <Katya Page - Last Filed: 07/10/19 11:23> ED Treatment Course - LABORATORY CBC & Chemistry Diagram: 07/08/19 11:30 07/08/19 11:30 - ADDITIONAL ORDERS Additional order review: Laboratory Results 07/08/19 07/08/19 07/08/19 13:00 13:00 11:30 Sodium 139 Potassium 4.4 Chloride 106 Carbon Dioxide 27 Anion Gap 5 L BUN 10.6 Creatinine 0.7 Est GFR (CKD-EPI)AfAm 137.62 Est GFR (CKD-EPI)NonAf 118.74 Random Glucose 89 Calcium 8.7 Total Bilirubin 0.3 AST 19 ALT 26 Alkaline Phosphatase 65 Total Protein 6.8 Albumin 3.4 Lipase 71 L Urine Color Yellow Urine Appearance Cloudy Urine pH 5.5 Ur Specific B[place] 1.022 Urine Protein Negative Urine Glucose (UA) Negative Urine Ketones Negative Urine Blood Negative Urine Nitrite Negative Urine Bilirubin Negative Urine Urobilinogen 0.2 Ur Leukocyte Esterase Negative Urine HCG, Qual Negative 07/08/19 11:30 RBC 5.06 MCV 64.0 L MCHC 31.2 L RDW 21.6 H MPV 10.1 Neutrophils % 45.0 Lymphocytes % 37.1 Monocytes % 16.3 H D Eosinophils % 0.5 Basophils % 1.1 - Medications Given in the ED: ED Medications Discontinued Medications Generic Name Dose Route Start Last Admin Trade Name Freq PRN Reason Stop Dose Admin Famotidine/Sodium Chloride 20 mg in 50 mls @ 100 mls/hr 07/08/19 11:35 12:10 Pepcid 20 Mg Premixed Ivpb - IVPB 07/08/19 12:04 100 mls/hr ONCE ONE Administration Sodium Chloride 1,000 mls @ 1,000 mls/hr 07/08/19 11:35 07/08/19 12:10 Normal Saline - IV 07/08/19 12:34 1,000 mls/hr ASDIR STA Administration Ondansetron HCl 4 mg 07/08/19 11:36 07/08/19 12:10 Zofran Injection IVPUSH 07/08/19 11:37 4 mg ONCE ONE Administration <Audrey Barakat - Last Filed: 07/08/19 19:12> - LABORATORY CBC & Chemistry Diagram: 07/08/19 11:30 07/08/19 11:30 - ADDITIONAL ORDERS Additional order review: 07/08/19 13:00 Urine Culture - Final Urine - Urine Clean Catch NO GROWTH OBTAINED 07/08/19 11:30 RBC 5.06 MCV 64.0 L MCHC 31.2 L RDW 21.6 H MPV 10.1 Neutrophils % 45.0 Lymphocytes % 37.1 Monocytes % 16.3 H D Eosinophils % 0.5 Basophils % 1.1 - Medications Given in the ED: ED Medications Discontinued Medications Generic Name Dose Route Start Last Admin Trade Name Freq PRN Reason Stop Dose Admin Famotidine/Sodium Chloride 20 mg in 50 mls @ 100 mls/hr 07/08/19 11:35 12:10 Pepcid 20 Mg Premixed Ivpb - IVPB 07/08/19 12:04 100 mls/hr ONCE ONE Administration Sodium Chloride 1,000 mls @ 1,000 mls/hr 07/08/19 11:35 07/08/19 12:10 Normal Saline - IV 07/08/19 12:34 1,000 mls/hr ASDIR STA Administration Ketorolac Tromethamine 30 mg 07/08/19 18:21 07/08/19 19:12 Toradol Injection - IVPUSH 07/08/19 18:22 30 mg ONCE ONE Administration Morphine Sulfate 4 mg 07/08/19 14:18 07/08/19 16:31 Morphine Injection - IVPUSH 07/08/19 14:19 4 mg ONCE ONE Administration Ondansetron HCl 4 mg 07/08/19 11:36 07/08/19 12:10 Zofran Injection IVPUSH 07/08/19 11:37 4 mg ONCE ONE Administration <Katya Page - Last Filed: 07/10/19 11:23> Medical Decision Making - Medical Decision Making 07/08/19 16:23 Patient endorsed to me pending CT abdomen r/o sbo, reassessment and disposition. Patient seen and reassessed. States pain is was improved with morphine however she still has some symptoms which are 2/10. Reviewed the CAT scan report noted. Given Toradol 30 mg IV Vital signs repeated and are normal. pulse 93, afebrile 07/08/19 18:17 Patient Full Name: MICHELLE PALENCIA Patient Accession No: [id number] Patient : 1990 Reason for Exam: mid abdominal pain Referring Physician: LUCILA BUCKNER Patient Name: TALHA MARTINEZ THIS IS A PRELIMINARY REPORT FROM [facility] EXAM: CT of the abdomen and pelvis with both oral and IV contrast. 90 cc a3 100 is utilized IV. IMAGES: 1156 EXAM DATE AND TIME: 2012-09-21 20:48:21.0 REASON FOR EXAM: Abdominal pain. COMPARISON: None. FINDINGS: Cardiac silhouette is normal in appearance. Lung bases are clear. Uniform attenuation and enhancement is seen throughout the liver, spleen and pancreas. No biliary or pancreatic ductal dilatation, mass or cystic change. There appears to been previous resection of the head of the pancreas. Although the pancreatic duct is not dilated, there does appear to be bowel in the pancreatic duct consistent with a pancreaticojejunostomy. Previous cholecystectomy noted. No adrenal masses. Good excretion of IV contrast by both kidneys is present without hydronephrosis, mass or cystic change. No retroperitoneal adenopathy or fibrosis. Stomach, small bowel and colon all demonstrate positive contrast within them. No evidence of bowel wall thickening. No acute inflammatory changes the right or left lower quadrant. No evidence of obstruction or ileus. No terminal ileum. The appendix was not identified. Pelvic CT shows no acute inflammatory changes in the true pelvis. No pelvic adenopathy or free fluid in the true pelvis. There is abnormal dilatation of the left gonadal vein with diffuse pelvic venous congestion. Uterus and ovaries are unremarkable. Fluid is noted in the cul-de-sac. A recently ruptured ring- enhancing Graafian follicle is present in the right ovary which is displaced along the posterior mid uterine segment centrally. The left ovary is unremarkable save for the surrounding congested veins and is displaced into the left lower quadrant. The urinary bladder is normal in appearance. Phleboliths are noted in the true pelvis. No evidence of ureterolithiasis or ureteral dilatation. The perivesicular and perirectal fat is well preserved. No significant bone or surrounding soft tissue abnormality. IMPRESSION Cholecystectomy. No residual biliary ductal dilatation. There appears to been previous resection of the head of the pancreas with a pancreatic or jejunostomy. Air is noted in the biliary tree and the pancreatic duct. No surgical history is given except for minimal abdominal pain. No bowel obstruction or ileus. The appendix is not identified. No abnormality of the terminal ileum. Recently ruptured ring-enhancing Graafian follicle in the right ovary. Fluid is seen in the right adnexal region and in the cul-de-sac. The left ovary is displaced in the left lower quadrant of the abdomen. Pelvic venous congestion is evident with dilatation of the left gonadal vein. One or more of the following dose reduction techniques were used: automated exposure control, adjustment of the mA and/or kV according to patient size, use of iterative reconstructive technique. THIS DOCUMENT HAS BEEN ELECTRONICALLY SIGNED Morales Phillips M.D. 07/08/2019 18:09 ALHAJI Rios. Please call Imaging Dies[employer] Powerplant Supervisor [phone] ([phone]) with questions. INTERPRETING RADIOLOGIST: Morales Phillips MD Electronically Signed: Jul 08, 2019 06:10PM EST I discussed the physical exam findings, ancillary test results and final diagnoses with the patient. I answered all of the patient's questions. The patient was satisfied with the care received and felt comfortable with the discharge plan and treatment plan. The Patient agrees to follow up with the primary care physician within 24-72 hours. <Audrey Barakat - Last Filed: 07/08/19 19:12> - Medical Decision Making The patient was seen and evaluated in conjunction with midlevel provider under my direct supervision, ancillary studies were reviewed. I agree with the plan as outlined with KATIE Nazario. HPI, workup/dispo as outlined. VS reviewed, mild tachy likely from pain, will recheck after supportive care/tx. anticipate discharge, pcp followup, return precautions 07/10/19 11:22 07/10/19 11:22 <Katya Page - Last Filed: 07/10/19 11:23> Discharge - Discharge Information Problems reviewed: Yes <YuvalAlexx - Last Filed: 07/08/19 19:12> <Katya Page Inocencia - Last Filed: 07/10/19 11:23> - Discharge Information Clinical Impression/Diagnosis: Abdominal pain Qualifiers: Abdominal location: epigastric Qualified Code(s): R10.13 - Epigastric pain Condition: Stable Disposition: HOME - Additional Discharge Information Prescriptions: Oxycodone HCl/Acetaminophen [Percocet 5/325 -] 1 tab PO Q4H #12 tablet MDD 6 - Follow up/Referral Referrals: ON STAFF,NOT [Primary Care Provider] - - Patient Discharge Instructions Patient Printed Discharge Instructions: DI for Ovarian Cyst, DI for Abdominal Pain-Adult Additional Instructions: Your Discharge Instructions: You must call primary care physician within 24 hours to arrange follow-up. Return to the Emergency Department with any new, persistent or worsening symptoms, for fever, chills, SOB, dizziness or any other concerning changes that may occur. Follow-up with your surgeon for further evaluation. Continue pain medications as needed for pain. Follow-up with [facility]. - Post Discharge Activity Work/Back to School Note: Back to Work
[2019-07-08] MEDS ORDERED: KETOROLAC TROMETHAMINE 30 MG/1 ML VIAL IVPUSH ONE (18:21)
[2019-07-08] MEDS ORDERED: KETOROLAC TROMETHAMINE 30 MG/1 ML VIAL ONE (19:05)
== END 2019-07-08 19:14 | disposition home or self-care (01) ==
LOC: JER 10:47
PROC: 3E033GC Introduction of Other Therapeutic Substance into Peripheral Vein, Percutaneous Approach (ICD-10-PCS; principal; 2019-07-08)
PROC: 3E033NZ Introduction of Analgesics, Hypnotics, Sedatives into Peripheral Vein, Percutaneous Approach (ICD-10-PCS; 2019-07-08)
PROC: 3E0333Z Introduction of Anti-inflammatory into Peripheral Vein, Percutaneous Approach (ICD-10-PCS; 2019-07-08)
PROC: 3E033GC Introduction of Other Therapeutic Substance into Peripheral Vein, Percutaneous Approach (ICD-10-PCS; 2019-07-08)
DX: R10.13 Epigastric pain (principal); Z85.07 Personal history of malignant neoplasm of pancreas; Z90.49 Acquired absence of other specified parts of digestive tract
CPT/HCPCS: 36415; 74177-TC; 80053; 81003; 83690; 84703; 85025; 87086; 96365; 96375; 99285-25; J7030; Q9967

== ENCOUNTER 2020-01-15 20:06 | Emergency (ER) | payer OTHER ==
[2020-01-15] MEDS ORDERED: METOCLOPRAMIDE HCL INJECTION 10 MG/2 ML VIAL IVPB ONE (20:15)
[2020-01-15] MEDS ORDERED: SODIUM CHLORIDE 1,000 ML IV STA (20:15)
[2020-01-15] MEDS ORDERED: FAMOTIDINE 20 MG/50 ML IVPB 20 MG/50 ML MG IVPB ONE ×2 (20:15→21:01)
--- NOTE | 2020-01-15 20:15 | PDOC ---
Rapid Medical Evaluation Chief Complaint: Pain Time Seen by Provider: 01/15/20 20:11 Medical Evaluation: Allergies Allergy/AdvReac Type Severity Reaction Status Date / Time No Known Allergies Allergy Verified 07/08/19 10:52 01/15/20 20:12 I have performed a brief in-person evaluation of this patient. The patient presents with a chief complaint of: 2wks with left upper and right lower abdominal pain worsening in the last 2 days. report feeling of heartburn. Denies N/V. report some diarrhea. pt has been seen multiple times in the past with same complains. LMP 01/03 Pertinent physical exam findings: A&O x 3 in NAD I have ordered the following: CBC,CMP,lipase, hcg The patient will proceed to the ED for further evaluation. Discharge Disposition - Diagnosis Abdominal pain - Discharge Dispostion Condition at time of disposition: Stable - Referrals - Patient Instructions - Post Discharge Activity
[2020-01-15 20:16] VITALS: BP 127/78; PULSE 76; TEMP 98.1; BMI 30.4
[2020-01-15] MEDS ORDERED: METOCLOPRAMIDE HCL INJECTION 10 MG/2 ML VIAL ONE (21:01)
[2020-01-15 21:38] LABS: EOS % 1.9 % (0-4.5); HEMATOCRIT 32.6 % (32.4-45.2); HEMOGLOBIN 10.4 GM/dL (10.7-15.3); LYMPH % 41.8 % (8-40); MCH 21.8 pg (25.7-33.7); MCHC 31.7 g/dl (32.0-36.0); MEAN CELL VOLUME 68.7 fl (80-96); MONO % 8.5 % (3.8-10.2); NEUT % 46.8 % (42.8-82.8); RBC 4.75 M/mm3 (3.60-5.2); RDW 21.2 % (11.6-15.6); WHITE BLOOD COUNT 6.8 K/mm3 (4.0-10.0)
[2020-01-15 22:09] LABS: ALBUMIN 3.3 g/dl (3.4-5.0); BILIRUBIN,TOTAL 0.5 mg/dL (0.2-1); BLOOD UREA NITROGEN 12.3 mg/dL (7-18); CALCIUM 8.3 mg/dL (8.5-10.1); CREATININE 0.8 mg/dL (0.55-1.3); POTASSIUM 5.2 mmol/L (3.5-5.1); TOT PROT 6.8 g/dl (6.4-8.2)
[2020-01-15 22:20] LABS: HCG,QUALITATIVE URINE Negative
[2020-01-15 23:04] LABS: URINE APPEARANCE TURBID; URINE BILIRUBIN NEGATIVE (NEGATIVE); URINE COLOR YELLOW; URINE GLUCOSE (UA) NEGATIVE (NEGATIVE); URINE KETONE NEGATIVE (NEGATIVE); URINE LEUK ESTERASE NEGATIVE (NEGATIVE); URINE NITRITE NEGATIVE (NEGATIVE); URINE PROTEIN NEGATIVE (NEGATIVE)
[2020-01-15 23:15] LABS: ANISOCYTOSIS 1+; MACROCYTOSIS 0; PLATELET ESTIMATE DECREASED; TARGET CELLS 1+
[2020-01-15 23:25] LABS: MEAN PLT VOLUME 10.7 fl (7.5-11.1); PLATELET COUNT 130 K/MM3 (134-434)
--- NOTE | 2020-01-15 23:51 | PDOC ---
History of Present Illness - General Chief Complaint: Pain Stated Complaint: STOMACH PAIN Time Seen by Provider: 01/15/20 20:11 History Source: Patient - History of Present Illness Initial Comments: 01/16/20 00:00 Patient is a 28-year-old female who presents to the ED with right lower quadrant pain/right pelvic pain for the last 2 to 3 days. Denies fever/chills, nausea, vomiting, vaginal bleeding, vaginal discharge, urinary symptoms, flank pain. 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 Past History - Medical History Allergies/Adverse Reactions: Allergies Allergy/AdvReac Type Severity Reaction Status Date / Time No Known Allergies Allergy Verified 07/08/19 10:52 Home Medications: Ambulatory Orders Oxycodone HCl/Acetaminophen [Percocet 5/325 -] 1 tab PO Q4H #12 tablet MDD 6 07/08/19 Anemia: Yes Asthma: Yes Cancer: Yes (pancreatic CA 02/2019) COPD: No - Surgical History Abdominal Surgery: Yes (Whipple 02/2019) - Reproductive History Is Patient Now?: No (Maybe?) - Immunization History Immunization Up to Date: Yes - Psycho-Social/Smoking History Smoking History: Never smoked Have you smoked in the past 12 months: Yes Number of Cigarettes Smoked Daily: 2 'Breaking Loose' booklet given: 04/09/16 - Substance Abuse Hx (Audit-C & DAST Scrn) How often the patient has a drink containing alcohol: Never Score: In Men: 4 or > Positive; In Women: 3 or > Positive: 0 Screen Result (Pos requires Nsg. Audit-10AR): Negative Review of Systems - Review of Systems Able to Perform ROS?: Yes Is the patient limited Albanian proficient: No Constitutional: No: Symptoms Reported, See HPI, Chills, Diaphoresis, Fever, Loss of Appetite, Malaise, Night Sweats, Weakness, Weight Stable, Unintentional Wgt. Loss, Unexplained wgt Loss, Other ABD/GI: Yes: Abdominal cramping : Yes: Other (Pelvic pain) *Physical Exam - Vital Signs Last Vital Signs Temp Pulse Resp BP Pulse Ox 98.1 F 76 20 127/78 99 01/15/20 20:11 01/15/20 20:11 01/15/20 20:11 01/15/20 20:11 01/15/20 20:11 - Physical Exam General Appearance: Yes: Appropriately Dressed Respiratory/Chest: positive: Lungs Clear, Normal Breath Sounds Gastrointestinal/Abdominal: positive: Normal Bowel Sounds, Tender (right pelvic/ right lower quadrant) Musculoskeletal: positive: Normal Inspection. negative: CVA Tenderness Extremity: positive: Normal Capillary Refill, Normal Inspection Integumentary: positive: Normal Color, Dry, Warm Neurologic: positive: Fully Oriented, Alert, Normal Mood/Affect ED Treatment Course - LABORATORY CBC & Chemistry Diagram: 01/15/20 21:20 01/15/20 21:20 - ADDITIONAL ORDERS Additional order review: Laboratory Results 01/15/20 01/15/20 21:40 21:20 Sodium 142 Potassium 5.2 H Chloride 109 H Carbon Dioxide 29 Anion Gap 4 L BUN 12.3 Creatinine 0.8 Est GFR (CKD-EPI)AfAm 116.28 Est GFR (CKD-EPI)NonAf 100.33 Random Glucose 65 L Calcium 8.3 L Total Bilirubin 0.5 AST 32 ALT 25 Alkaline Phosphatase 70 Total Protein 6.8 Albumin 3.3 L Lipase 40 L Urine Color Yellow Urine Appearance Turbid Urine pH 7.0 D Ur Specific [place] 1.024 Urine Protein Negative Urine Glucose (UA) Negative Urine Ketones Negative Urine Blood Negative Urine Nitrite Negative Urine Bilirubin Negative Urine Urobilinogen 1.0 Ur Leukocyte Esterase Negative Urine HCG, Qual Negative 01/15/20 21:20 RBC 4.75 MCV 68.7 L MCHC 31.7 L RDW 21.2 H MPV 10.7 Neutrophils % 46.8 Lymphocytes % 41.8 H Monocytes % 8.5 Eosinophils % 1.9 D Basophils % 1.0 - RADIOLOGY Radiology Studies Ordered: Category Date Time Status TRANSVAGINAL ULTRASOUND US [US] Stat Ultrasound 01/15/20 22:24 Completed - Medications Given in the ED: ED Medications Discontinued Medications Generic Name Dose Route Start Last Admin Trade Name Freq PRN Reason Stop Dose Admin Sodium Chloride 1,000 mls @ 1,000 mls/hr 01/15/20 20:15 01/15/20 21:29 Normal Saline - IV 01/15/20 21:14 1,000 mls/hr ASDIR STA Administration Famotidine/Sodium Chloride 20 mg in 50 mls @ 100 mls/hr 01/15/20 20:15 01/15/20 21:29 Pepcid 20 Mg Premixed Ivpb - IVPB 01/15/20 20:44 100 mls/hr ONCE ONE Administration Metoclopramide HCl 10 mg 01/15/20 20:15 01/15/20 21:29 Reglan Injection - IVPB 01/15/20 20:16 10 mg ONCE ONE Administration ED Progress Note - Progress Note Progress Note: A: RLQ/ pelvic pain P: labs UA TVUS CTAP: normal appendix 01/16/20 03:19 CTAP: negative 01/16/20 05:51 Discharge - Discharge Information Problems reviewed: Yes Clinical Impression/Diagnosis: Abdominal pain Qualifiers: Abdominal location: lower abdomen, unspecified Qualified Code(s): R10.30 - Lo wer abdominal pain, unspecified Condition: Stable Disposition: HOME - Follow up/Referral - Patient Discharge Instructions Patient Printed Discharge Instructions: DI for Abdominal Pain-Adult Additional Instructions: drink plenty of fluids please follow up with your doctor as soon as possible return to the ER for any worsening symptoms - Post Discharge Activity Work/Back to School Note: Back to Work
[2020-01-16] MEDS ORDERED: ACETAMINOPHEN 1000 MG/100 ML VIAL (NON FORMULARY) IVPB ONE (02:57)
[2020-01-16] MEDS ORDERED: ACETAMINOPHEN INJECTION 100 ML IVPB ONE (03:04)
[2020-01-16] MEDS ORDERED: KETOROLAC TROMETHAMINE 30 MG/1 ML VIAL IVPUSH ONE (03:23)
[2020-01-16] MEDS ORDERED: KETOROLAC TROMETHAMINE 30 MG/1 ML VIAL ONE (03:26)
== END 2020-01-16 03:32 | disposition home or self-care (01) ==
LOC: JER 20:06
PROC: 3E0333Z Introduction of Anti-inflammatory into Peripheral Vein, Percutaneous Approach (ICD-10-PCS; principal; 2020-01-15)
PROC: 3E033GC Introduction of Other Therapeutic Substance into Peripheral Vein, Percutaneous Approach (ICD-10-PCS; 2020-01-15)
PROC: 3E0337Z Introduction of Electrolytic and Water Balance Substance into Peripheral Vein, Percutaneous Approach (ICD-10-PCS; 2020-01-15)
DX: R10.30 Lower abdominal pain, unspecified (principal)
CPT/HCPCS: 36415; 74176-TC; 76830-TC; 80053; 81003; 83690; 84703; 85025; 87086; 99285-25; J0131